=== PATIENT | male | born 1960 | race Caucasian/White ===

== ENCOUNTER 2023-11-29 11:36 | Inpatient (IN) | payer OTHER, SELFPAY ==
[2023-11-29] VITALS (23 sets, daily range): BP systolic 84–107; BP diastolic 55–77; PULSE 52–64; BMI 36.7
[2023-11-29] MEDS: NSS 1000 IV (07:28)
--- NOTE | 2023-11-29 07:32 | ED.GENMED ---
History of Present Illness
General
Chief Complaint: Fall
Time Seen by Provider: 11/29/23 07:28
History of Present Illness
History of Present Illness:
63-year-old male with history of diabetes, hyperlipidemia, hypertension, CHF with pacemaker presenting to the emergency department for fall and syncopal episode. Patient was at [facility] prior to arrival, had fallen in the aisle. Patient is unsure
why he fell. Denied any prodromal chest pain occultly breathing. Believes that he did lose consciousness. He presently denies any pain anywhere. He denies chest pain, difficulty breathing, abdominal pain. Denies any recent fever or illness.
Denies any present dizziness. Denies weakness or numbness or tingling to his extremities. Denies additional acute medical complaints.
Past History
Past History
ED Past Medical History: Other (Trach)
ED Past Surgical History: Cardiac (Pacemaker)
Social History
Tobacco: Other
Alcohol: Other
Drug: Other
Personal: Other
Employment: Other
Family History
Family History: Unable to obtain
Phy Exam
Physical Exam
Physical Exam:
General: Well-appearing, no clinical signs of dehydration, nontoxic and in no acute distress
HEENT: protecting airway. Extraocular movements intact. Abrasion to the nose. No septal hematoma
Neck: appears supple
CV: Normal heart rate, regular rhythm, no evidence of cyanosis
Resp: No accessory muscle use, no increased work of breathing, lungs clear to auscultation bilaterally
Abd: Soft and non-distended, no tenderness to palpation, normal bowel sounds
Extremities: No deformities, no swelling, no erythema
Neuro: alert, no focal neurologic deficit
: deferred
Rectal: deferred
Psych: Normal affect
Skin: Intact
Course
Orders/Labs/Results
Orders:
Orders
11/29/23 07:27
Electrocardiogram (*1) Urgent
Reason for Study: Chest Pain
EKG- Treatment ONCE
11/29/23 07:28
0.9% Sodium Chloride 1000 ml [Nss] 1,000 ml IV BOLUS
11/29/23 07:29
CT Head W/o Iv Contrast Urgent
Comment:
Reason For Exam: fall
EKG- Treatment ONCE
11/29/23 07:46
COVID-19 Antigen Urgent
Source: Nasal Swab
Complete Blood Count/With Diff Urgent
PTT Urgent
Prothrombin Time Urgent
11/29/23 07:47
Urinalysis Urgent
Date Specimen was Collected: 11/29/23
Time Specimen was Collected: 07:41
Urine Drug Abuse Screen Urgent
Date Specimen was Collected: 11/29/23
Time Specimen was Collected: 07:41
11/29/23 07:51
Add On- LAB Urgent
Tests Added?: Pro-BNP
11/29/23 07:54
Add On- LAB Urgent
Tests Added?: Alcohol
Add On- LAB Urgent
Tests Added?: Urine Drug Screen
11/29/23 08:21
Alcohol Urgent
Basic Metabolic Panel Urgent
NT-proBNP Urgent
Troponin I Urgent
Abnormal Lab Results
11/29/23 11/29/23 11/29/23
07:46 07:47 08:21
RBC 6.88 H 10^6/uL
(4.70-6.10)
MCV 72.2 L fL
(80.0-94.0)
MCH 23.5 L pg
(27.0-31.0)
MCHC 32.6 L g/dL
(33.0-37.0)
RDW 20.4 H %
(11.5-14.5)
Absolute Monos (auto) 0.8 H 10^3/uL
(0.1-0.6)
Monocytes % 10.9 H %
(1.7-9.3)
PT 14.7 H Sec
(11.4-14.6)
BUN 42 H mg/dl
(9-20)
Creatinine 1.5 H mg/dL
(0.7-1.3)
Glucose 202 H mg/dl
(70-99)
Urine Glucose 3+ A
(Negative)
11/29/23 07:46
11/29/23 08:21
Vital Signs
Initial and Last Documented VS:
Initial Vital Signs
Temp Pulse Resp BP Pulse Ox
97.7 F 64 20 99/61 95
11/29/23 07:21 11/29/23 07:21 11/29/23 07:21 11/29/23 07:21 11/29/23 07:21
Last Documented Vital Signs
Temp Pulse Resp BP Pulse Ox
97.7 F 54 16 90/62 95
11/29/23 07:21 11/29/23 09:25 11/29/23 09:25 11/29/23 09:25 11/29/23 09:25
MDM/Problems Addressed
MDM/Problems Addressed:
63-year-old male with history of hypertension, hyperlipidemia, diabetes, CHF with pacemaker presenting for syncopal episode. Vital signs on arrival are normal.
On exam patient is well-appearing, no acute distress or discomfort. Patient currently denying any acute symptoms. He is unclear why he passed out, had no prodromal symptoms. EKG obtained, ventricular paced, without change from prior. No focal
neurologic deficits, lower suspicion for central neurologic process. Patient afebrile, nontoxic, without concern for infectious pathology. [id number] glucose slightly elevated, without concern for hypoglycemic event. Patient does have
significant comorbidities, so will screen further with lab analysis. Given evidence of facial trauma, will screen with CT brain. Patient with pacemaker, will interrogate. Orthostatics obtained, unremarkable.
09:35 -patient's labs relatively unremarkable, mild hyperglycemia. CT brain without acute intracranial abnormality. Patient did have his device interrogated, patient has not CT, and appears to have sustained 2 shocks for ventricular tachycardia, 1
at 6:33 AM and another at 6:38 AM, which would coincide with timing of patient's falls prior to arrival. Patient allegedly fell in the aisle at [facility], and again in the bathroom. Did discuss with cardiology, will come evaluate, with likely plan
for admission/possible catheterization.
*EKG
Interpreted by ED Provider?: Yes
EKG Intrepretation Date: 11/29/23
EKG Intrepretation Time: 07:38
Interpretation: normal
Comparison EKG: no changes
Heart Rate: 75
Rate: normal
Rhythm: ventricular paced
[place]: normal axis
Interval: normal interval
Ischemia: no ischemia
*Critical Care Note
Total Time (30-74mins, 75-104mins- exclusive of procedures): Not Applicable
ED Attending Note
-
Portions of this chart may have been created with voice recognition software.� Occasional wrong word or��sound alike� substitutions may have occurred due to the inherent limitations of voice recognition software.
Discharge Plan
Departure
Prescriptions:
No Action
levothyroxine 100 MCG tablet
100 mcg PO DAILY
aspirin 81 MG tablet,delayed release (DR/EC)
81 mg PO DAILY
atorvastatin 40 mg tablet
40 mg PO DAILY
carvedilol 6.25 mg tablet
6.25 mg PO BID
torsemide 20 mg tablet
20 mg PO DAILY
amiodarone 200 mg tablet
200 mg PO DAILY
isosorbide mononitrate 30 mg tablet extended release 24 hr
30 mg PO DAILY
glimepiride 2 mg tablet
2 mg PO DAILY
potassium chloride 10 mEq tablet,ER particles/crystals
10 meq PO BID
omega-3 acid ethyl esters 1 gram capsule
1 g PO DAILY
Jardiance 10 mg tablet
10 mg PO DAILY
Entresto 49-51 mg tablet
1 tab PO Q12H
coenzyme Q10 [Co Q-10] 100 mg Capsule
100 mg PO DAILY
Referrals:
Stone Stevens MD [Family Provider] -
Interventions
Interventions:
*Risk Screen - Suicide Last Done: 11/29/23 07:21
*General Assessment Last Done: 11/29/23 07:21
*Neglect/Abuse Screening Last Done: 11/29/23 07:21
ED- Fall Risk Assessment Last Done: 11/29/23 07:21
*ED COVID-19 Vaccine History Last Done: 11/29/23 07:21
ED-Musculoskeletal Assessment Last Done: 11/29/23 07:21
ED- Neurological Assessment Last Done: 11/29/23 07:21
ED-Skin Assessment Last Done: 11/29/23 07:21
Discharge Date and Time
Print Language: UPPER SORBIAN
[2023-11-29 08:04] LABS: Urine Albumin Trace (Neg - Trace); Urine Bilirubin Negative (Negative); Urine Character Clear (Clear); Urine Color Yellow; Urine Glucose 3+ (Negative); Urine Ketone Negative (Negative); Urine Leukocyte Negative (Negative); Urine Nitrite Negative (Negative); Urine Occult Blood Negative (Negative); Urine Urobilinogen Negative (Neg - 1+); Urine pH 6.5 (5.0-9.0)
[2023-11-29 08:09] LABS: % Eosinophils 1.2 % (0-6); % Immature Granulocytes 0.4 % (0-0.5); % Lymphocytes 22.1 % (20.5-51.1); % Monocytes 10.9 % (1.7-9.3); % Neutrophils 64.4 % (42.2-75.2); Absolute Basophils 0.1 10^3/uL (0-0.2); Absolute Eosinophils 0.1 10^3/uL (0-0.7); Absolute Lymphocytes 1.5 10^3/uL (1.2-3.4); Absolute Monocytes 0.8 10^3/uL (0.1-0.6); Absolute Neutrophils 4.4 10^3/uL (1.4-6.5); Hematocrit 49.7 % (39.0-52.0); Hemoglobin 16.2 g/dL (13.0-18.0); Mean Corp Hgb Conc. 32.6 g/dL (33.0-37.0); Mean Corpuscular Hgb 23.5 pg (27.0-31.0); Mean Corpuscular Volume 72.2 fL (80.0-94.0); Mean Platelet Volume 10.2 fL (7.4-10.4); Nucleated Red Blood Cells % 0 % (-); Platelet Count 177 10^3/uL (130-400); Red Blood Cell Count 6.88 10^6/uL (4.70-6.10); Red Cell Dist. Width 20.4 % (11.5-14.5); White Blood Cell Count 6.9 10^3/uL (4.8-10.8)
[2023-11-29 08:11] LABS: INR 1.14; PT 14.7 Sec (11.4-14.6)
[2023-11-29 08:12] LABS: APTT 28.9 Sec (23.4-35.0)
[2023-11-29 08:17] LABS: COVID-19 Antigen Negative (Negative)
[2023-11-29 08:54] LABS: Amphetamines Negative (Negative); Barbiturates Negative (Negative); Benzodiazepines Negative (Negative); Buprenorphine Negative (Negative); Cocaine Negative (Negative); Marijuana Negative (Negative); Methadone Negative (Negative); Methamphetamines Negative (Negative); Opiates Negative (Negative); Phencyclidine Negative (Negative); Tricyclic Antidepressants Negative (Negative)
--- NOTE | 2023-11-29 08:57 | EDRN ---
the pt is resting in stretcher in the lowest position, side rails up x2, call melendez within reach, HOB elevated, no s/s of distress, the pt does have MATHIS, no c/o chest pain at this moment, the pt states that it is intermittent, the pt ambulates to the
bathroom independently with no issues, antibiotic ointment was placed on the abrasion on the pts bridge of nose and covered with a band aid, [employer] pacemaker interrogated, provider notified, will continue to monitor the pt closely
--- NOTE | 2023-11-29 08:59 | EDRN ---
labs were sent twice by this RN and were hemolyzed twice per the lab, this RN notified Dr. White
[2023-11-29 09:00] LABS: Alcohol None Detected; Blood Urea Nitrogen 42 mg/dl (9-20); Calcium 8.8 mg/dl (8.4-10.2); Carbon Dioxide 22 mmol/L (22-30); Chloride 103 mmol/L (98-107); Estimated Creatinine Clearance 59 ml/min; Glucose 202 mg/dl (70-99); Sodium 141 mmol/L (135-145); eGFR 51.99
[2023-11-29 09:12] LABS: Troponin I 0.029 ng/ml
--- NOTE | 2023-11-29 09:16 | EDRN ---
Troponin came back elevated, Dr. White made aware
[2023-11-29 09:55] LABS: NT-proBNP 869 pg/ml
--- NOTE | 2023-11-29 09:59 | EDRN ---
Magnesium and Potassium need to be drawn due to lab stating that they were hemolyzed, this RN notified Dr. White, this RN will draw and sen labs
--- NOTE | 2023-11-29 10:17 | EDRN ---
Cardiology currently at the pts bedside
--- NOTE | 2023-11-29 10:20 | CON.CAR ---
Addendum entered and electronically signed by Shaina Chen MD 11/29/23 12:02:
I saw and examined the patient.
The HOME SCHOOL TEACHER's note was reviewed and I agree with the note.
Comment: Pleasant 63-year-old gentleman with a past medical history of ischemic cardiomyopathy with an EF of 5 to 10%, [employer] BiV ICD however LV lead is deactivated and is known to be dislodged, prior anterior wall GA with PCI? (VT patient
reports approximate 5 to 6 years ago on amiodarone 200 mg a day, CKD, diabetes, hypothyroidism and sleep apnea presents after 2 syncopal episodes that occurred today while doing his morning walk [facility] [employer]. He does not recall the events. [place]
Confide ICD interrogation shows 2 episodes of VT that failed ATP pacing and resulted in appropriate shocks. Currently he is feeling well. He states he has been feeling well in the last weeks. No chest pain or shortness of breath. He climbs a
flight of stairs without having to stop. Typical dance costume designer is Dr. Pierre Andre. On exam he appears to be in no distress a regular rate and rhythm with a normal S1-S2 no murmur rubs gallops were appreciated lungs were clear to auscultation
bilaterally abdomen is obese but soft, extremities were warm well-perfused including cyanosis or edema. EKG is atrial sensed V paced.
Syncope due to VT with appropriate ICD shocks x 2. Will proceed to cardiac catheterization and start IV amiodarone. Will ask EP to review his case. Initial Trope 0.02 9, will need to trend given ICD shock on clear what the significance of this
level with a single check. He has no chest pain. He does have a history of prior PCI and ischemic cardiomyopathy. Will continue aspirin. Heart failure seems to be compensated will continue typical heart failure medications. Will update his
echocardiogram although already has severely reduced reported EF at 5 to 10%.
Original Note:
Consultation
Consultation Request
Date/Time Consultation Requested: 11/29/23935
Date/Time Consultation Performed: 11/29/2366
Requesting Provider: Dr. White
Performing Provider: Fatimah GONZAELZ for Dr. Chen
Reason for Consultation: VT with shocks
Medical History
-
Chief Complaint: falls
History of Present Illness:
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
Today, he was walking in [employer] and fell and got up, then had another fall. It sounds like he had syncope, though he does not recall much of it. Device check reveals VT with two shocks this AM corresponding to the time he had his episodes. He hit
his face and had nose bleeding. Head CT negative. He has chest discomfort that is worse to palpation. He is in no distress at the time of my assessment and denies any SOB.
Past Medical History
Past Medical History: Arrhythmias, CAD, CHF, Hypothyroidism, NIDDM and Other (sleep)
Social History
Tobacco: Former Smoker
Family History
Family History: Reviewed & Not Pertinent
Allergies / Home Medications
Allergy/AdvReac Type Severity Reaction Status Date / Time
No Known Allergies Allergy Verified 03/09/22 12:35
�Medication �Instructions �Recorded �Confirmed �Type
aspirin 81 mg tablet,delayed 81 mg PO DAILY Blood clot 09/03/18 11/29/23 History
release prevention/tx
levothyroxine 100 mcg tablet 100 mcg PO DAILY Thyroid 09/03/18 11/29/23 History
amiodarone 200 mg tablet 200 mg PO DAILY Arrhythmia 03/09/22 11/29/23 History
atorvastatin 40 mg tablet 40 mg PO DAILY High cholesterol 03/09/22 11/29/23 History
carvedilol 6.25 mg tablet 6.25 mg PO BID Blood pressure 03/09/22 11/29/23 History
coenzyme Q10 100 mg capsule (Co 100 mg PO DAILY Supplement 03/09/22 11/29/23 History
Q-10)
empagliflozin 10 mg tablet 10 mg PO DAILY Diabetes 03/09/22 11/29/23 History
(Jardiance)
glimepiride 2 mg tablet 2 mg PO DAILY Diabetes 03/09/22 11/29/23 History
isosorbide mononitrate 30 mg 30 mg PO DAILY Heart 03/09/22 11/29/23 History
tablet,extended release 24 hr disease/condition
omega-3 acid ethyl esters 1 gram 1 g PO DAILY Supplement 03/09/22 11/29/23 History
capsule
potassium chloride 10 mEq 10 meq PO BID Electrolyte Repletion 03/09/22 11/29/23 History
tablet,extended release(part/cryst)
sacubitril 49 mg-valsartan 51 mg 1 tab PO Q12H Heart Failure 03/09/22 11/29/23 History
tablet (Entresto)
torsemide 20 mg tablet 20 mg PO DAILY Fluid 03/09/22 11/29/23 History
retention/Swelling
Review of Systems
-
History Source: Patient
All other systems: Negative unless noted
Cardiac: Syncope
Physical Exam
Vital Signs
Temp Pulse Resp BP Pulse Ox
97.7 F 54 16 90/62 95
11/29/23 07:21 11/29/23 09:25 11/29/23 09:25 11/29/23 09:25 11/29/23 09:25
Lab Results
11/29/23 07:46
Troponin I 0.029 ng/ml 11/29/23 08:21
Qcr-U-Ntmmjodeczv Pept 869 pg/ml 11/29/23 08:21
Physical Exam
General: Well Developed, Well Nourished and No Apparent Distress
HEENT: Normocephalic and Anicteric
Respiratory: Clear and Non Labored Respirations
Cardiac: Regular Rhythm
Musculoskeletal: No Edema
Skin: Warm and Dry
Neuro: AO x 3
Psych: Calm
Impression / Plan
-
Syncope related to ventricular tachycardia s/p ICD shocks:
-this diagnosis is threat to life
-start IV amiodarone, which requires intensive monitoring. Echo today. EP to evaluate.
-cardiac cath today
-K and mag pending
CAD with hx GA:
-details unknown, but patient thinks he had a PCI in the past
-he takes daily baby aspirin every night. Continue statin, coreg, imdur.
VT:
-ICD in place
-reloading with IV amiodarone
-continue coreg
CKD:
-seems stable
-monitor
ICM:
-EF 5-10% on last echo as below
-update here
-on coreg, Entresto, Jardiance
HFrEF: chronic
-does not appear volume overloaded to assessment
-continue diuretic and monitor
DM:
-on medical therapy
Data Reviewed
-
EKG: Tracing Personally Visualized and interpreted (baseline artifact, V paced rhythm, underlying SR)
CT Scan: Report Reviewed by me (No evidence of acute intracranial abnormality.)
Medical Tests (Nuc Med, Echo etc): Report Reviewed by me (echo 02/19/2023: EF 5-10%, severe eccentric LVH, grade III DD, moderate MR, PAP 42 mmHG)
Labs: Labs Reviewed by me
--- NOTE | 2023-11-29 10:51 | EDRN ---
Cardiology currently at the pts bedside
--- NOTE | 2023-11-29 11:01 | EDRN ---
hospitalist currently at the pts bedside
--- NOTE | 2023-11-29 11:14 | HPS.HSE ---
Family Physician
-
Family Physician: Stone Stevens
Chief Complaint
-
Syncope
History of Present Illness
63-year-old male with past medical history of CAD status post PCI, ischemic cardiomyopathy with a EF 5 to 10%, [employer] BiV ICD, CKD, diabetes, hypothyroidism, sleep apnea came to the hospital after 2 syncopal episodes when he was having
his morning walk. Patient denies any nausea, vomiting, diarrhea, constipation. Denies any shortness of breath. Does feel discomfort around his chest. His outpatient solderer furnace is Dr. Andre from [facility]. Upon ICD interrogation it was
determined that patient had 2 shocks provided today around the timing of his syncopal episode. He has been seen by cardiology in the ER and will be taken for cardiac catheterization.
Medical History
Past Medical History
Past Medical History: Reports Arrhythmia, CAD, CHF, Hypothyroidism, NIDDM and Other (Sleep apnea)
Past Surgical History: Reports Cardiac
Social History
Tobacco: Former Smoker
Alcohol: None
Family History
Family History: Not pertinent
Allergies / Home Medications
Allergies reflects when Allergies were last updated in [employer].
Home Medications with original date entered in [employer]
Allergy/Medication List:
Allergies
Allergy/AdvReac Type Severity Reaction Status Date / Time
No Known Allergies Allergy Verified 03/09/22 12:35
Home Medications
levothyroxine 100 mcg tablet 100 mcg PO DAILY Thyroid 09/03/18
amiodarone 200 mg tablet 200 mg PO DAILY Arrhythmia 03/09/22
atorvastatin 40 mg tablet 40 mg PO DAILY High cholesterol 03/09/22
carvedilol 6.25 mg tablet 6.25 mg PO BID Blood pressure 03/09/22
coenzyme Q10 100 mg capsule (Co Q-10) 100 mg PO DAILY Supplement 03/09/22
empagliflozin 10 mg tablet (Jardiance) 10 mg PO DAILY Diabetes 03/09/22
glimepiride 2 mg tablet 2 mg PO DAILY Diabetes 03/09/22
isosorbide mononitrate 30 mg tablet,extended release 24 hr 30 mg PO DAILY Heart disease/condition 03/09/22
omega-3 acid ethyl esters 1 gram capsule 1 g PO DAILY Supplement 03/09/22
potassium chloride 10 mEq tablet,extended release(part/cryst) 10 meq PO BID Electrolyte Repletion 03/09/22
sacubitril 49 mg-valsartan 51 mg tablet (Entresto) 1 tab PO Q12H Heart Failure 03/09/22
torsemide 20 mg tablet 20 mg PO DAILY Fluid retention/Swelling 03/09/22
aspirin 81 mg tablet,delayed release 81 mg PO QPM 11/29/23
Review of Systems
-
History Source: Patient
A 12 point ROS was completed and negative except as noted: Yes
Cardiac: Reports Syncope
Physical Exam
Vital Signs
Vital Signs
Temp Pulse Resp BP Pulse Ox
97.7 F 55 16 92/72 95
11/29/23 07:21 11/29/23 11:01 11/29/23 09:25 11/29/23 11:01 11/29/23 11:01
Physical Exam
General: Well Nourished and No Apparent Distress
HEENT: Anicteric and Moist mucous membranes
Respiratory: Clear and Non Labored Respirations; No Wheezes
Cardiac: S1/S2 and Regular Rhythm
Breast: Deferred by me
GI: Soft, Non Tender, Non Distended and Normal Bowel Sounds
Rectal: Deferred by Provider
Genito-urinary: No [place]
Musculoskeletal: No Edema
Neuro: Awake, Alert, Oriented and AO x 3
Psych: Calm and Intact Judgment/Insight
Laboratory Results
-
11/29/23 07:46
Laboratory Results
PT 14.7 Sec (11.4-14.6) H 11/29/23 07:46
INR 1.14 11/29/23 07:46
APTT 28.9 Sec (23.4-35.0) 11/29/23 07:46
Total Bilirubin Cancelled 11/29/23 08:21
AST Cancelled 11/29/23 08:21
ALT Cancelled 11/29/23 08:21
Alkaline Phosphatase Cancelled 11/29/23 08:21
Troponin I 0.029 ng/ml 11/29/23 08:21
Data Reviewed
-
Lab Data: Labs Reviewed by me and Discussed with Patient
Impression/Plan
-
Syncope secondary to ventricular tachycardia status post ICD shocks
Continue with amiodarone drip
Echo
EP to evaluate
Cardiac cath today; NPO
Monitor potassium and magnesium
History of ventricular tachycardia
Has BiV ICD
Follows up with Dr. Andre outpatient
CKD 3a
monitor creatinine
HLD
Ischemic cardiomyopathy
Reported EF 5 to 10%, echo pending
Continue Coreg, Jardiance, Imdur
Entresto if blood pressure tolerates
CHF with reduced EF, chronic
Does not appear to be volume overloaded
Continue to monitor
Continue torsemide
Diabetes mellitus
Hold glimepiride
Low-dose sliding scale, Accu-Cheks
Hypothyroidism-continue Synthroid
Obesity due to excess calories
DVT prophylaxis
Heparin
Full code
I spent a total of 77 minutes with the patient or on the floor. More than 50% of this time involved counseling and coordination of care.
--- NOTE | 2023-11-29 11:20 | EDRN ---
labs drawn and sent, second PIV placed
[2023-11-29] MEDS: CORDARONE 103 MG IV (11:29)
--- NOTE | 2023-11-29 11:41 | EDRN ---
the lab called and stated that the pts labs hemolyzed again, this RN notified Dr. White
[2023-11-29] MEDS: CORDARONE 518 MG IV (11:42)
--- NOTE | 2023-11-29 11:47 | EDRN ---
Amiodarone gtt started at 1mg/min or 33.3cc/hour, the pts HR is in the 50's, this RN notified Fatimah Schneider PASS WORKER, per the provider it is okay to run the pts Amiodarone gtt, the pt is resting in stretcher in the lowest position, side rails up x2, call
melendez within reach, HOB elevated, no s/s of distress, no c/o chest pain, no c/o SOB, per the provider the pt is to be NPO and the pt was notified, will continue to monitor the pt closely
--- NOTE | 2023-11-29 12:15 | EDRN ---
the lab called and stated that the pts K and Mag have hemolyzed, this RN notified the provider
--- NOTE | 2023-11-29 12:26 | EDRN ---
labs were drawn and sent
--- NOTE | 2023-11-29 12:41 | EDRN ---
verbal report given to Katherine BARNES in the dye lab technician
--- NOTE | 2023-11-29 12:47 | EDRN ---
this RN tubed paper report to the receiving unit
[2023-11-29 12:48] LABS: Magnesium 2.3 mg/dl (1.6-2.3); Potassium 4.6 mmol/L (3.5-5.1)
--- NOTE | 2023-11-29 12:51 | EDRN ---
this RN entered the pts room to notify him that he was going to be taken to the construction or leak gang laborer, the pt stated, 'I need to use the bathroom first i cannot hold it please let me up', the pt was able to ambulate to the bathroom with cardiac catheterization technician on and
amiodarone gtt running, the pt is sitting on the toilet attempting to have a bowel movement, will continue to monitor the pt closely
--- NOTE | 2023-11-29 12:53 | EDRN ---
K and Mag results came back and this RN notified the provider
[2023-11-29 13:30] LABS: TSH Reflex To Free T4 0.14 uIU/ml (0.47-4.68)
--- NOTE | 2023-11-29 13:54 | W.PN.UPDATE ---
Update Note
Progress Note Update
63-year-old send sinus, cardiomyopathy, LVEF 10% presented with multiple VT episodes terminated with ICD shock. Had 3 shocks for appropriate. S/p left heart cath showing diffuse mild disease on the left system with occluded RCA filling from left
to right collaterals.
Patient's device is [employer] implanted on 01/26/2015
Device is Dynagen X4 DISPUTE RESOLUTION ANALYST [id number]
Atrial lead as intrinsic amplitude 4.2 mV with an impedance of 482 ohms. Threshold 1.0 V at 0.8 ms
RV ICD lead is 100% paced with impedance of 548 ohms. Last threshold was 0.6V@ 0.5 ms. Shock impedance 53 ohms stable
LV lead has previously been dislodged and is turned off with pacing impedance of more than 3000 ohms.
Patient's VT is appropriately treated with ICD shocks.
We will load patient with amiodarone IV drip and increase home dose of amiodarone to 400 twice daily for a week followed by 200 twice daily at a maintenance dose.
Will continue carvedilol 6.25 mg twice a day.
For heart failure, he is on Entresto, Imdur, carvedilol, Jardiance, Lipitor, aspirin, torsemide. Potentially can add spironolactone or eplerenone.
Currently patient is EKG shows a sensed V paced rhythm with left bundle branch base morphology from the RV ICD lead. Patient's LV CS lead has been dislodged/dysfunctional. Patient is a nonresponder to DISPUTE RESOLUTION ANALYST and LVEF is 10 to 15%. With CS lead still
in place, and nonfunctional with QRS is more than 200 ms wide, he would be a good candidate for DISPUTE RESOLUTION ANALYST upgrade.
We can potentially place a left bundle branch/conduction system pacing lead. And extraction of nonfunctional LV lead is also possibility. However, given his morbidities, we can abandon the CS lead and place a conduction system pacing lead if
venogram shows patent axillary/subclavian venous system.
--- NOTE | 2023-11-29 14:50 | ITS.CL.CATH ---
Sales Exec - Catheterization
Cardiac Catheterization
Procedure Report:
CARDIAC CATHETERIZATION REPORT
Date of Procedure: 11/29/23
Referring: Dr. Shaina Chen
Indication: VT, ICD shock
PROCEDURE:
1. Left heart catheterization
2. Coronary angiography
ACCESS:
6 [place] right radial artery
CATHETERS:
1. 6 [place] JL3.5
2. 6 [place] JR4
HEMODYNAMIC DATA (mmHg)
LV 100/19 (EDP 32)
AO 93/63 (mean 76)
CORONARY ANGIOGRAPHY
Dominance: right
LM: normal
LAD: appears to be flush occluded just after the takeoff of a moderate caliber D1. There are L-L collaterals to small branch vessels on the anterolateral wall.
RAMUS: large vessel without significant disease.
LCx: moderate caliber vessel giving rise to several LPL branches. There is a 50% stenosis at the ostial LCx.
RCA: fills via left to right collaterals. The RCA could not be selectively engaged and did not fill on non-selective injection of the right cusp, suggesting it to be flush occluded.
Closure Device: TD band
Radiation dose (mGy): 527.48
DAP (cm2.Gy): 33.3627
Fluoroscopy time (minutes): 5.2
CONCLUSIONS:
1. Two-vessel coronary artery disease with LAD EARLY CHILDHOOD EDUCATION SPECIALIST and RCA EARLY CHILDHOOD EDUCATION SPECIALIST with L-R collaterals. No culprit occlusion to explain the patient's VT.
2. Severely elevated LV filling pressure and no aortic stenosis.
RECOMMENDATIONS:
1. Expectant management after cardiac catheterization via right approach.
2. Aggressive diuresis and GDMT for heart failure.
3. EP consultation to address malfunctioning LV pacing lead.
Copy to: Dr. Pierre Andre (primary senior administrative services officer)
Signed: Aftab Pitt MD, PhD
[2023-11-29 16:07] LABS: Free T4 2.22 ng/dl (0.78-2.19)
--- NOTE | 2023-11-29 16:35 | CM ---
CM following for DC planning needs.
Met w/ patient at bedside to complete initial assessment.
Pt. informs that he resides w/ his sister in a private, 1 level apartment.
He is functionally indep. at baseline; works for [employer].
Pt. has Rx plan and uses [facility] for prescription needs.
Pt. does have CPAP @ home. He is seeking support in obtaining a CPAP for long travel to [place]. I advised him to follow up with his prescribing Preschool Disability Teacher. He showed me lesley, which indicates he is due for an appointment as of September,-
encouraged patient to call them for appointment.
Anticipated DC plan is for home, no needs.
CM will follow.
--- NOTE | 2023-11-29 17:08 | CARDSERVLU ---
Echocardiogram with Lumason completed after protocol screening completed. Allergies verified.
Patent IV site: LW_
IV site flushed with 0.9% NaCl pre and post administration.
Diluted bolus method utilized to enhance visualization of ventricular rooney.
Total volume given: ___2.5_ mL
Patient tolerated all procedures well without complications.
[2023-11-29 17:23] LABS: Glucose - Point of Care 121 mg/dl (70-99)
[2023-11-29 17:52] LABS: Troponin I 0.028 ng/ml
--- NOTE | 2023-11-29 18:00 | PTCARENOTE ---
Pt received post cath at 1430. Right rad band intact with no hematoma or bleeding. Pt c/o of mild chest discomfort. Dr. Pitt aware. O2 on at 2LNC. Pt stated he felt better after wearing the O2. Assisted oob to the bathroom, gait steady. IV amio
infusing as ordered.
[2023-11-29] MEDS: ASPIR LOW (ENTERIC COATED) 81 MG PO (19:12)
[2023-11-29] MEDS: KCL 10 MEQ PO (19:26)
[2023-11-29] MEDS: HEPARIN 5000 UNITS SC (19:27)
[2023-11-29] MEDS: COREG 6.25 MG PO (19:27)
[2023-11-29 21:26] LABS: Glucose - Point of Care 107 mg/dl (70-99)
--- NOTE | 2023-11-29 23:16 | PTCARENOTE ---
Pt rec'd PROGRAM DIRECTOR/TRAFFIC DIRECTOR on telemetry on IV Amio gtt. IV site patent. CPAP order obtained from House Seafood Process Worker ,pt tolerating at this time.
[2023-11-30] VITALS (10 sets, daily range): BP systolic 92–111; BP diastolic 49–76; PULSE 56–60; BMI 35.4
[2023-11-30 04:49] LABS: % Basophils 0.7 % (0-2); % Eosinophils 1.3 % (0-6); % Immature Granulocytes 0.3 % (0-0.5); % Lymphocytes 15.5 % (20.5-51.1); % Monocytes 11.7 % (1.7-9.3); % Neutrophils 70.5 % (42.2-75.2); Absolute Basophils 0.1 10^3/uL (0-0.2); Absolute Eosinophils 0.1 10^3/uL (0-0.7); Absolute Monocytes 0.8 10^3/uL (0.1-0.6); Absolute Neutrophils 4.7 10^3/uL (1.4-6.5); Hematocrit 48.6 % (39.0-52.0); Hemoglobin 15.9 g/dL (13.0-18.0); Mean Corp Hgb Conc. 32.7 g/dL (33.0-37.0); Mean Corpuscular Hgb 24.3 pg (27.0-31.0); Mean Corpuscular Volume 74.2 fL (80.0-94.0); Mean Platelet Volume 10.2 fL (7.4-10.4); Nucleated Red Blood Cells % 0 % (-); Platelet Count 170 10^3/uL (130-400); Red Blood Cell Count 6.55 10^6/uL (4.70-6.10); Red Cell Dist. Width 19.9 % (11.5-14.5); White Blood Cell Count 6.7 10^3/uL (4.8-10.8)
--- NOTE | 2023-11-30 05:09 | PTCARENOTE ---
Pt with c/o discomfort at RAC iv site, iv removed ice applied
new 20g placed on left forearm.
[2023-11-30 05:20] LABS: Troponin I 0.022 ng/ml
[2023-11-30 06:18] LABS: Blood Urea Nitrogen 32 mg/dl (9-20); Calcium 8.7 mg/dl (8.4-10.2); Carbon Dioxide 19 mmol/L (22-30); Chloride 106 mmol/L (98-107); Estimated Creatinine Clearance 63 ml/min; Glucose 134 mg/dl (70-99); Magnesium 2.3 mg/dl (1.6-2.3); Potassium 4.5 mmol/L (3.5-5.1); Sodium 142 mmol/L (135-145); eGFR 56.48
[2023-11-30] MEDS: SYNTHROID 100 MCG PO (07:40)
[2023-11-30 08:37] LABS: Glucose - Point of Care 120 mg/dl (70-99)
[2023-11-30] MEDS: PACERONE 400 MG PO ×2 (08:52→20:57)
[2023-11-30] MEDS: FARXIGA 10 MG PO (08:52)
[2023-11-30] MEDS: KCL 10 MEQ PO ×2 (08:52→20:56)
[2023-11-30] MEDS: IMDUR (EXTENDED RELEASE) 30 MG PO (08:52)
[2023-11-30] MEDS: COREG 6.25 MG PO ×2 (08:53→20:59)
[2023-11-30] MEDS: LIPITOR 40 MG PO (08:53)
[2023-11-30] MEDS: HEPARIN SC (09:03)
--- NOTE | 2023-11-30 09:11 | W.PN.CD ---
Today's Communication / Plan
-
give lasix now
hold entresto and jardiance for now
upgrade BIV ortega sci device, NPO
transistion iv amio to po
Impression / Plan
-
Syncope related to ventricular tachycardia s/p ICD shocks:
-this diagnosis is threat to life
-EP evaluation are reviewed and appreciated, transition amiodarone to 400 mg p.o. twice daily for a week then 200 mg twice daily daily
-Cath without new etiology of VT likely due to severe cardiomyopathy
-Discussed with outpatient roustabout Dr. Sanon who knows the patient well. All agree that he may benefit from an upgraded device. Would abandon the LV lead and try to place another lead versus a bundle manager branch.
-Discussed with Dr. Cain today who has the ability to upgrade device today. Will move forward with this.
-has some reproducible chest tenderness likely due to shock.
VT:
-ICD in place
-Status post IV amnio load transitioning to p.o. as above
-continue coreg
CAD with hx [place]:
-Cath below
-No angina, continue OMT
HFrEF: chronic
-today sob with lying flat
-will give IV lasix now requires intesive monitoring of labb so there is
ICM:
-EF10-15% on echo, likely unchanged
-on coreg, Entresto, Jardiance, torsemide, bp doesn't allow for MRA right now
-holding Jardiance and Entresto for procedure today
CKD:
-seems stable
-monitor
DM:
-as per medicine
Subjective:
He has some cp pain in the mid chest
He denies dyspnea or orthopnea
Data:
Cath 11/30/23
HEMODYNAMIC DATA (mmHg)
LV 100/19 (EDP 32)
AO 93/63 (mean 76)
CORONARY ANGIOGRAPHY
Dominance: right
LM: normal
LAD: appears to be flush occluded just after the takeoff of a moderate caliber D1. There are L-L collaterals to small branch vessels on the anterolateral wall.
RAMUS: large vessel without significant disease.
LCx: moderate caliber vessel giving rise to several LPL branches. There is a 50% stenosis at the ostial LCx.
RCA: fills via left to right collaterals. The RCA could not be selectively engaged and did not fill on non-selective injection of the right cusp, suggesting it to be flush occluded.
CONCLUSIONS:
1. Two-vessel coronary artery disease with LAD NETWORK SECURITY ARCHITECT and RCA NETWORK SECURITY ARCHITECT with L-R collaterals. No culprit occlusion to explain the patient's VT.
2. Severely elevated LV filling pressure and no aortic stenosis.
RECOMMENDATIONS:
1. Expectant management after cardiac catheterization via right approach.
2. Aggressive diuresis and GDMT for heart failure.
3. EP consultation to address malfunctioning LV pacing lead.
CCT 41 minutes
Physical Exam
Vital Signs/Labs
Vital Signs
Temp Pulse Resp BP Pulse Ox
97.9 F 69 20 104/69 97
11/30/23 07:20 11/30/23 07:00 11/30/23 07:20 11/30/23 03:58 11/30/23 07:20
11/29/23 11/30/23 12/01/23
06:59 06:59 06:59
Actual Weight 106.1 kg
11/30/23 04:33
11/30/23 05:40
PT 14.7 Sec (11.4-14.6) H 11/29/23 07:46
INR 1.14 11/29/23 07:46
APTT 28.9 Sec (23.4-35.0) 11/29/23 07:46
Magnesium 2.3 mg/dl (1.6-2.3) 11/30/23 05:40
Free T4 2.22 ng/dl (0.78-2.19) H 11/29/23 08:21
11/29/23 11/29/23
07:46 08:21
Tfk-C-Bazamhnzbet Pept Cancelled 869
LAB Results
11/29/23 11/29/23 11/29/23
07:46 08:21 17:08
Troponin I Cancelled 0.029 0.028
11/29/23 11/30/23 11/30/23
20:10 00:30 04:33
Troponin I Cancelled Cancelled 0.022
Physical Exam
Constitutional: No acute distress
Cardiovascular: Rhythm & rate is regular, Systolic murmur absent, Diastolic murmur absent and Other (tenderness mid sternum with palptations)
Respiratory: Lungs clear to auscul., Wheeze Absent, Crackles Absent, Rhonchi Absent and Other (increased resp effort with lying)
Neuro/Psych: AO x 3
Data Reviewed
-
Date of Service: November 30, 2023
Medical Decision Making: Review of Case with other Provider (Dr Arambula and Dr Cain plan to upgrade device)
[2023-11-30] MEDS: LASIX 40 MG IV ×2 (09:26→17:55)
[2023-11-30] MEDS: FLUSH (NSS) 1 FLUSH IV ×2 (09:28→17:09)
[2023-11-30] MEDS: TYLENOL 650 MG PO (09:31)
[2023-11-30 09:40] LABS: Glycohemoglobin (HgbA1c) 7.3 % (4.0-5.6)
--- NOTE | 2023-11-30 13:33 | W.PN.HOSP.TC ---
Today's Communication/Plan
-
Monitor vital signs
see plan
OR today by EP to upgrade ICD device
Lasix given by cardiology
Assessment / Plan
Assessment / Plan
General: Well Nourished and No Apparent Distress
HEENT: Anicteric and Moist mucous membranes
Respiratory: Clear and Non Labored Respirations; No Wheezes
Cardiac: S1/S2 and Regular Rhythm
GI: Soft, Non Tender, Non Distended and Normal Bowel Sounds
Genito-urinary: No Lawrence
Musculoskeletal: No Edema
Neuro: Awake, Alert, Oriented and AO x 3
Psych: Calm and Intact Judgment/Insight
Syncope secondary to ventricular tachycardia status post ICD shocks
Was on amnio drip which will be transition to p.o. amiodarone per cardiology
Status post catheterization 11/28 without new etiology of ventricular tachycardia which likely is secondary to severe cardiomyopathy
EP is also involved in patient device will be upgraded 11/29.
Monitor potassium and magnesium
History of ventricular tachycardia
Has BiV ICD, will be upgraded 11/29. EP following
Follows up with Dr. Andre outpatient
CKD 3a
monitor creatinine
HLD
Ischemic cardiomyopathy
Echo with EF 10 to 15%, previously was 5 to 10%
Continue Coreg, Jardiance, Imdur
Entresto if blood pressure tolerates
CHF with reduced EF, chronic
Does not appear to be volume overloaded
Continue to monitor
Continue torsemide
Diabetes mellitus
Hold glimepiride
Low-dose sliding scale, Accu-Cheks
A1c 7.3
Hypothyroidism-continue Synthroid
Obesity due to excess calories
DVT prophylaxis
Heparin
Full code
Anticipated Discharge: > 48 hours
Subjective/Interval History
-
Date of Service: November 30, 2023
denies sob
Objective Data
-
Labs:
Laboratory Results
11/30/23 11/30/23
04:33 05:40
WBC 6.7
Hgb 15.9
Hct 48.6
Plt Count 170
Sodium Cancelled 142
Potassium Cancelled 4.5
Chloride Cancelled 106
Carbon Dioxide Cancelled 19 L
BUN Cancelled 32 H
Creatinine Cancelled 1.4 H
Glucose Cancelled 134 H
Calcium Cancelled 8.7
Vital Signs:
Vital Signs
Temp Pulse Resp BP Pulse Ox
97.9 F 66 20 101/60 96
11/30/23 07:20 11/30/23 09:30 11/30/23 07:20 11/30/23 07:23 11/30/23 07:23
--- NOTE | 2023-11-30 14:06 | PN.CDI ---
CDI
- -
CDI:
Physician Documentation Request
Admit Date: 11/29/23 11:36
Dear Doctor Gustavo,
Clinical Indicators:
Patient admitted with syncope, secondary to ventricular tachycardia
11/28 Business Consult Report, LVEDP 32 'Aggressive diuresis and GDMT for heart failure'
11/29 Cardiology PN, 'HFrEF: chronic-today sob with lying flat...'
11/29 Lasix 40 mg IV x 1.
Please clarify the most likely acuity of CHF you are evaluating, treating or monitoring.
Acute on chronic HFpEF
Chronic HFrEF only
Other,please specify
Use of terms such as suspected, likely, concern for, or probable (associated with a specific diagnosis that is being evaluated, monitored, or treated as if it exists) are acceptable and can be coded in the inpatient setting, when documented at the
time of discharge.
Thank you,
Maggie Mansfield RN BSN
CDI Specialist
available via tiger text
Please use your independent medical judgment in providing your response.
[2023-11-30 14:28] LABS: Glucose - Point of Care 134 mg/dl (70-99)
--- NOTE | 2023-11-30 14:28 | ITS.CL.ICD ---
Addendum entered and electronically signed by Amador Cani MD 11/30/23 15:31:
Correction:
Conclusion:
1. 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
2. Malfunction of LV lead placed in 2014 is confined to poles 1 and 2
3. ICD system was not changed. DFT testing was not performed. Filling pressures were not assessed.
4. Diaphragmatic stimulation threshold in current configuration is 3 V. LV output is programmed at 2 V.
Original Note:
Vice President Quality Assurance - ICD
Implantable Cardioverter Defibrillator
Procedure Report:
Date of Procedure: November 30, 2023.
Procedures: Left upper extremity venogram. ICD Pocket exploration. ICD reprogramming.
Indication: Rapid VT with appropriate shock. Heart failure. CS/LV lead malfunction
Performing physician: Amador Cain M.D., [facility].
Existing Hardware (no change in hardware made today)
Pulse Generator (implanted 01/26/2015): Yadio; Model# G156; Serial# [id number].
Atrial Lead: Guidant (implanted 04/18/2010): Model# [id number]; Serial# [id number].
Right Ventricular Lead: [employer] (implanted 04/18/2010); Model# [id number]; Serial# [id number].
Left Ventricular Lead: [employer] (implanted 01/26/2015); Model# [id number]; Serial# [id number].
Technique: A time out was performed. The procedure site was identified. The patient was anesthetized by the anesthesia service. The patient was prepped and draped in the usual fashion. A 10 mL venogram suggested a widely patent axillary and
subclavian vein. The cephalic vein was not seen but 2 leads seem to travel along the course of cephalic vein access. Cefazolin was administered prior to the skin incision. Local anesthetic was applied to the left prepectoral subcutaneous tissue.
The left axillary vein could not be accessed with a percutaneous approach because of the location of the pulse generator. A 3 inch incision was made over the pulse generator and the generator was removed from the pocket to allow venous access. The
axillary vein was accessed but the micro puncture wire and a glide wire would not advance. A review of the venogram showed that there is in fact about a 3-5 cm total occlusion of the axillary and subclavian vein. As the initial plan was for
referral for consideration of extraction and reimplantation (vs right sided implant with new system or single lead with tunnelling to the left) I chose not to perform pulse generator change. There is over 1 year until GERMAN. A Zwamytronic Tyrx
absorbable antibiotic envelop was used. The device and leads were placed back in the pocket. The incision was closed in three layers with absorbable suture. Steri strips and an silver impregnated dressing were applied. The estimated loss was less
than 5 ml. There were no complications. Defibrillation threshold testing was not performed. IV contrast total: 10ml. Fluoroscopy time 8.8 minutes and DAP 1.3 GyCM2.
System Analysis:
RA lead: P: 4.3 mV; Threshold: 0.9 V @ 0.4 ms; Impedance: 452 ohms.
RV lead: R: 15.4 mV; Threshold: 0.5 V @ 0.4 ms; Impedance: 526 ohms. Shock impedance 45 ohms.
LV lead (LV4=>LV3): R: 7.9 mV; Threshold: 1 V @ 0.4 ms; Impedance: 838 ohms. Electrical separation over 150 ms.
LV lead poles 1 and 3 have impedance over 3,000 c/w fracture. Poles 3 and 4 have normal impedance.
Post procedure EKG shows good BiV pacing morphology and QRS duration has decreased from 228 ms to 164 ms (computer measurements).
Final Programming: Tachy: VT1 150 (ATP only); VT 175 (ATP then shocks); VF:220 (ATPx1 then shocks); Leonides: DDDR 50-125. CS/LV lead now active. VV offset is -40 ms, LV first.
Conclusion: Uncomplicated Biventricular ICD implant and testing. Compensated filling pressures.
Recommendation: Routine post BiV ICD care. Incision check in our office in 1 week. Amiodarone 400 mg BID for 10 more days then 400 mg daily. Consider lowering amiodarone dose in 6 months. Monitor LV/CS lead for further malfunction.
cc: Glenn Sanon MD ([facility]).
[2023-11-30] MEDS: ASPIR LOW (ENTERIC COATED) 81 MG PO (17:08)
[2023-11-30] MEDS: ANCEF 5 IV (17:09)
[2023-11-30 18:03] LABS: Glucose - Point of Care 115 mg/dl (70-99)
--- NOTE | 2023-11-30 18:35 | PTCARENOTE ---
Pt received post procedure at 1420. Pt alert and oriented with no c/o of any pain. Left chest aquacell intact with no hematoma. Rep in room to interrogate the ICD. ECG's done as ordered by Dr. Cain during ICD testing. Pt oob amblulating to the
bathroom and to the lounge. No c/o offered.
[2023-11-30] MEDS: HEPARIN 5000 UNITS SC (20:59)
[2023-11-30] MEDS: ENTRESTO 49 MG/51 MG 1 TAB PO (20:59)
[2023-12-01 00:18] LABS: Glucose - Point of Care 99 mg/dl (70-99)
--- NOTE | 2023-12-01 01:14 | PTCARENOTE ---
Pt. received at change of shift, AV paced on tele with HR 50s-60s. Pt denies CP or SOB. Placed on CPAP by respiratory team at HS. L chest wall surgical site dressing C/D/I with no complications noted. Ambulating independently in room without
difficulty. Can make needs known. Call melendez within reach.
[2023-12-01] MEDS: ANCEF 5 IV (03:25)
[2023-12-01 03:35] VITALS: PULSE 63
[2023-12-01 03:37] VITALS: BP 95/62
[2023-12-01 03:54] VITALS: BMI 35.5
[2023-12-01 04:12] LABS: % Basophils 1.1 % (0-2); % Immature Granulocytes 0.5 % (0-0.5); % Lymphocytes 15.3 % (20.5-51.1); % Neutrophils 70.1 % (42.2-75.2); Absolute Basophils 0.1 10^3/uL (0-0.2); Absolute Eosinophils 0.1 10^3/uL (0-0.7); Absolute Monocytes 0.7 10^3/uL (0.1-0.6); Absolute Neutrophils 4.7 10^3/uL (1.4-6.5); Hematocrit 45.3 % (39.0-52.0); Hemoglobin 14.9 g/dL (13.0-18.0); Mean Corp Hgb Conc. 32.9 g/dL (33.0-37.0); Mean Corpuscular Hgb 23.6 pg (27.0-31.0); Mean Corpuscular Volume 71.8 fL (80.0-94.0); Mean Platelet Volume 9.8 fL (7.4-10.4); Nucleated Red Blood Cells % 0 % (-); Platelet Count 154 10^3/uL (130-400); Red Blood Cell Count 6.31 10^6/uL (4.70-6.10); Red Cell Dist. Width 19.8 % (11.5-14.5); White Blood Cell Count 6.6 10^3/uL (4.8-10.8)
[2023-12-01 04:30] LABS: Blood Urea Nitrogen 35 mg/dl (9-20); Calcium 8.9 mg/dl (8.4-10.2); Carbon Dioxide 22 mmol/L (22-30); Chloride 104 mmol/L (98-107); Estimated Creatinine Clearance 62 ml/min; Glucose 141 mg/dl (70-99); Magnesium 2.2 mg/dl (1.6-2.3); Potassium 4.1 mmol/L (3.5-5.1); Sodium 141 mmol/L (135-145); eGFR 56.48
[2023-12-01] MEDS: SYNTHROID 100 MCG PO (06:10)
[2023-12-01 07:25] LABS: Glucose - Point of Care 127 mg/dl (70-99)
[2023-12-01 07:48] VITALS: BP 108/75
[2023-12-01] MEDS: FARXIGA 10 MG PO (07:56)
[2023-12-01] MEDS: COREG 6.25 MG PO (07:56)
[2023-12-01] MEDS: PACERONE 400 MG PO (07:56)
[2023-12-01] MEDS: IMDUR (EXTENDED RELEASE) 30 MG PO (07:56)
[2023-12-01] MEDS: HEPARIN 5000 UNITS SC (07:57)
[2023-12-01] MEDS: FLUSH (NSS) 1 FLUSH IV (07:57)
[2023-12-01] MEDS: LIPITOR 40 MG PO (07:57)
[2023-12-01] MEDS: ENTRESTO 49 MG/51 MG 1 TAB PO (07:57)
[2023-12-01] MEDS: KCL 10 MEQ PO (07:57)
--- NOTE | 2023-12-01 09:44 | PTCARENOTE ---
The patient is aaox3, vss, av and v-pacing noted on the monitor. His left chest wall Aquacel dressing has scant old drainage. He has no complaints of pain. However, he did complain of a 'ticking' feeling on his mid left lateral chest area when he
pressed on it. He has been ambulatory in his room and in the san.
--- NOTE | 2023-12-01 10:55 | W.PN.CD ---
Today's Communication / Plan
-
Ok to discharge home on increased amiodarone dose
f/u for incision check in our office arranged
ulitimate follow up with Dr Andre and Christos at [facility].
Impression / Plan
-
Syncope related to ventricular tachycardia s/p ICD shocks:
-this diagnosis is threat to life
-EP evaluation are reviewed and appreciated, continue Amiodarone 400 mg BID for 9 more days then 400 mg daily. Consider lowering amiodarone dose in 6 months.
-Cath without new etiology of VT likely due to severe cardiomyopathy
-Atttempts at device upgrade EP :
Conclusion:
1. 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
2. Malfunction of LV lead placed in 2014 is confined to poles 1 and 2
3. ICD system was not changed. DFT testing was not performed. Filling pressures were not assessed.
4. Diaphragmatic stimulation threshold in current configuration is 3 V. LV output is programmed at 2 V.
Ultimate follow up with Dr Sher, incision check in 1 week in our office.
VT:
-ICD in place
-Status post IV amnio load transitioning to p.o. as above with increased dose
-continue coreg
CAD with hx [place]:
-Cath below
-No angina, continue OMT
HFrEF: acute on chronic
-today respiratory much improved,
-home gdmt resumed,
ICM:
-EF10-15% on echo, likely unchanged
-on coreg, Entresto, Jardiance, torsemide, bp doesn't allow for MRA right now
--bp soft at times for MRA, so can reconsider without op provider
-Finally did discuss with patient that he should talk to Dr Andre about referral for transplant/advanced therapy consideration now that he had a Sudden event and EF remains 10%
CKD:
-seems stable
-monitor
DM:
-as per medicine
Subjective:
He is worried about his heart, but feeling other junior ok.
Data:
Cath 11/30/23
HEMODYNAMIC DATA (mmHg)
LV 100/19 (EDP 32)
AO 93/63 (mean 76)
CORONARY ANGIOGRAPHY
Dominance: right
LM: normal
LAD: appears to be flush occluded just after the takeoff of a moderate caliber D1. There are L-L collaterals to small branch vessels on the anterolateral wall.
RAMUS: large vessel without significant disease.
LCx: moderate caliber vessel giving rise to several LPL branches. There is a 50% stenosis at the ostial LCx.
RCA: fills via left to right collaterals. The RCA could not be selectively engaged and did not fill on non-selective injection of the right cusp, suggesting it to be flush occluded.
CONCLUSIONS:
1. Two-vessel coronary artery disease with LAD INDIVIDUAL PENSION CONSULTANT and RCA INDIVIDUAL PENSION CONSULTANT with L-R collaterals. No culprit occlusion to explain the patient's VT.
2. Severely elevated LV filling pressure and no aortic stenosis.
RECOMMENDATIONS:
1. Expectant management after cardiac catheterization via right approach.
2. Aggressive diuresis and GDMT for heart failure.
3. EP consultation to address malfunctioning LV pacing lead.
Physical Exam
Vital Signs/Labs
Vital Signs
Temp Pulse Resp BP Pulse Ox
97.6 F 58 20 108/75 94
12/01/23 07:50 12/01/23 07:48 12/01/23 07:50 12/01/23 07:48 12/01/23 07:50
11/30/23 12/01/23 12/02/23
06:59 06:59 06:59
Actual Weight 106.1 kg 102.6 kg
12/01/23 03:36
12/01/23 03:36
PT 14.7 Sec (11.4-14.6) H 11/29/23 07:46
INR 1.14 11/29/23 07:46
APTT 28.9 Sec (23.4-35.0) 11/29/23 07:46
Magnesium 2.2 mg/dl (1.6-2.3) 12/01/23 03:36
Free T4 2.22 ng/dl (0.78-2.19) H 11/29/23 08:21
11/29/23 11/29/23
07:46 08:21
Qha-V-Zdagewbwwtk Pept Cancelled 869
LAB Results
11/29/23 11/29/23 11/29/23
07:46 08:21 17:08
Troponin I Cancelled 0.029 0.028
11/29/23 11/30/23 11/30/23
20:10 00:30 04:33
Troponin I Cancelled Cancelled 0.022
Physical Exam
Constitutional: No acute distress
Cardiovascular: Rhythm & rate is regular, Pedal edema is absent and JVD pressure is normal
Respiratory: Respiratory effort normal, Lungs clear to auscul., Wheeze Absent, Crackles Absent and Rhonchi Absent
Other: Cardiac Device Site (soft no hematoma, dressing CDI)
Data Reviewed
-
Date of Service: December 01, 2023
Medical Decision Making: Review of Case with other Provider (Dr Shaquille rivera for discharge)
--- NOTE | 2023-12-01 11:28 | W.PN.HOSP.TC ---
Addendum entered and electronically signed by Santhosh Corbin MD 12/01/23 11:37:
Time of discharge 38 minutes
Original Note:
Today's Communication/Plan
-
Monitor vital signs
see plan
Discharge today, discussed with cardiology
Continue with amiodarone
Assessment / Plan
Assessment / Plan
General: Well Nourished and No Apparent Distress
HEENT: Anicteric and Moist mucous membranes
Respiratory: Clear and Non Labored Respirations; No Wheezes
Cardiac: S1/S2 and Regular Rhythm
GI: Soft, Non Tender, Non Distended and Normal Bowel Sounds
Genito-urinary: No Lawrence
Musculoskeletal: No Edema
Neuro: Awake, Alert, Oriented and AO x 3
Psych: Calm and Intact Judgment/Insight
Syncope secondary to ventricular tachycardia status post ICD shocks
Now on Amio; Amiodarone 400 mg BID for 10 more days then 400 mg daily. Consider lowering amiodarone dose in 6 months.
Status post catheterization 11/28 without new etiology of ventricular tachycardia which likely is secondary to severe cardiomyopathy
EP is also involved in patient device will be upgraded 11/29. Procedure was canceled as patient had occluded left subclavian and left axillary vein. ICD was not changed however EP did change the settings. Patient will follow-up with outpatient
cardiology
Monitor potassium and magnesium
History of ventricular tachycardia
Has BiV ICD, will be upgraded 11/29. EP following
Follows up with Dr. Andre outpatient
CKD 3a
monitor creatinine
HLD
Ischemic cardiomyopathy
Echo with EF 10 to 15%, previously was 5 to 10%
Continue Coreg, Jardiance, Imdur
Entresto if blood pressure tolerates
CHF with reduced EF, chronic
Does not appear to be volume overloaded
Continue to monitor
Continue torsemide
Diabetes mellitus
Hold glimepiride
Low-dose sliding scale, Accu-Cheks
A1c 7.3
Hypothyroidism-continue Synthroid
Obesity due to excess calories
DVT prophylaxis
Heparin
Full code
Anticipated Discharge: Today
Subjective/Interval History
-
Date of Service: December 01, 2023
Denies pain
Objective Data
-
Labs:
Laboratory Results
12/01/23
03:36
WBC 6.6
Hgb 14.9
Hct 45.3
Plt Count 154
Sodium 141
Potassium 4.1
Chloride 104
Carbon Dioxide 22
BUN 35 H
Creatinine 1.4 H
Glucose 141 H
Calcium 8.9
Vital Signs:
Vital Signs
Temp Pulse Resp BP Pulse Ox
97.6 F 58 20 108/75 94
12/01/23 07:50 12/01/23 07:48 12/01/23 07:50 12/01/23 07:48 12/01/23 07:50
--- NOTE | 2023-12-01 11:36 | W.DCSUMMARY ---
Discharge Summary
Discharge Data
Date of Admission: 11/29/23
Date of Discharge: 12/01/23
-
Pending Results: No
Hospital Course
63-year-old male with past medical history of ventricular tachycardia status post ICD, hyperlipidemia, CKD, ischemic cardiomyopathy, CHF with reduced EF, diabetes mellitus, hypothyroidism, obesity came to the hospital after syncopal episode. Upon
interrogation of his ICD was determined that he had ventricular tachycardia episode with multiple shocks resulting in syncope. He was taken for cardiac catheterization which did not show any signs of significant CAD. There was also concern of
having LV lead malfunction for which she was seen by electrophysiology who took him to the OR for possible ICD replacement however procedure was held since he had occluded left subclavian and left axillary vein. Electrophysiology however was able
to change settings of his ICD. He was initially on amiodarone drip which was later transitioned to oral amiodarone prior to discharge. Cardiology recommended patient to follow-up with his outpatient bellows assembler soon for further management.
Echocardiogram was done which showed ejection fraction of 10 to 15%. Patient symptoms over time continue to improve and he was then discharged home with instructions to follow-up with all the physicians outpatient.
Discharge Plan
-
Patient Disposition: Home (Routine Discharge)
Discharge Diagnosis/Procedures: Ventricular tachycardia status post cardiac cath 11/28
Syncope related to ventricular tachycardia
Malfunction of LV lead
Diet: Low Cholesterol, 2 Gram Sodium and Restrict fluids to 48 oz
Driving Restrictions: VT with ICD shock cannot drive for 6 months
Bathing Restrictions: OK to Shower
Stand Alone Forms: DC Instructions- Cath/EP Lab, DC Inst - Implanted Device
Referrals:
[facility] [Provider Group] - 12/05/23 4:00 pm (Incision check appointment)
Stone Stevens MD [Family Provider] - in less than 1 week
Pierre Andre MD [Non-Admitting Privileges] - in four to six weeks
Prescriptions:
New
amiodarone 200 mg Tablet
400 mg PO BID Qty: 120 0RF
Rx Instructions:
Amiodarone 400 mg BID for 10 more days then 400 mg daily.
acetaminophen 325 mg Tablet
650 mg PO Q4HPRN PRN (Reason: mild pain) Qty: 0 0RF
Continued
levothyroxine 100 MCG tablet
100 mcg PO DAILY
atorvastatin 40 mg tablet
40 mg PO DAILY
carvedilol 6.25 mg tablet
6.25 mg PO BID
torsemide 20 mg tablet
20 mg PO DAILY
isosorbide mononitrate 30 mg tablet extended release 24 hr
30 mg PO DAILY
glimepiride 2 mg tablet
2 mg PO DAILY
potassium chloride 10 mEq tablet,ER particles/crystals
10 meq PO BID
omega-3 acid ethyl esters 1 gram capsule
1 g PO DAILY
Jardiance 10 mg tablet
10 mg PO DAILY
Entresto 49-51 mg tablet
1 tab PO Q12H
coenzyme Q10 [Co Q-10] 100 mg Capsule
100 mg PO DAILY
aspirin 81 mg Tablet,Delayed Release (Dr/Ec)
81 mg PO QPM
empagliflozin 10 mg Tablet
10 mg PO DAILY
Discontinued
amiodarone 200 mg tablet
200 mg PO DAILY
Discharge Orders:
Discharge Patient (As Directed); Ordered 12/01/23
Ordered By: Santhosh oCrbin
Care Plan Goals
Care Plan Goals:
Problem: Readiness for enhanced knowledge related to diagnosis and treatment plan
Goal: Understand your diagnosis and treatment plan needs, including medications if applicable.
Instructions: Know your diagnosis, underlying causes and treatment plan options, including medications if applicable. Consult with your health care team to learn about your diagnosis and treatment plan, including medications if applicable.
Discharge Date and Time
Discharge Date/Time: 12/01/23 13:58
Print Language: BARBADIAN
[2023-12-01 11:38] VITALS: BP 122/74
[2023-12-01 11:48] LABS: Glucose - Point of Care 154 mg/dl (70-99)
== END 2023-12-01 13:58 | disposition home or self-care (01) | DRG 286 ==
LOC: IVU 11:36
PROVIDERS: Internal Medicine Cardiovascular Disease; Nurse Practitioner; Student in an Organized Health Care Education/Training Program; ADMITTING PHYSICIAN Internal Medicine; CONSULT PHYSICIAN Internal Medicine Cardiovascular Disease; EMERGENCY PHYSICIAN Student in an Organized Health Care Education/Training Program; FAMILY PHYSICIAN Internal Medicine
PROC: 4B02XTZ Measurement of Cardiac Defibrillator, External Approach (ICD-10-PCS; 2023-11-29)
PROC: B2111ZZ Fluoroscopy of Multiple Coronary Arteries using Low Osmolar Contrast (ICD-10-PCS; 2023-11-29)
PROC: 5A09357 Assistance with Respiratory Ventilation, Less than 24 Consecutive Hours, Continuous Positive Airway Pressure (ICD-10-PCS; 2023-11-29)
PROC: 4A023N7 Measurement of Cardiac Sampling and Pressure, Left Heart, Percutaneous Approach (ICD-10-PCS; 2023-11-29)
PROC: 05JY3ZZ Inspection of Upper Vein, Percutaneous Approach (ICD-10-PCS; 2023-11-30)
PROC: B51N1ZZ Fluoroscopy of Left Upper Extremity Veins using Low Osmolar Contrast (ICD-10-PCS; 2023-11-30)
DX: I47.20 Ventricular tachycardia, unspecified (principal); I50.23 Acute on chronic systolic (congestive) heart failure; T82.110A Breakdown (mechanical) of cardiac electrode, initial encounter; I13.0 Hypertensive heart and chronic kidney disease with heart failure and stage 1 through stage 4 chronic kidney disease, or unspecified chronic kidney disease; I42.9 Cardiomyopathy, unspecified; I82.B12 Acute embolism and thrombosis of left subclavian vein; Y71.2 Prosthetic and other implants, materials and accessory cardiovascular devices associated with adverse incidents; Y83.8 Other surgical procedures as the cause of abnormal reaction of the patient, or of later complication, without mention of misadventure at the time of the procedure; R55 Syncope and collapse; E11.22 Type 2 diabetes mellitus with diabetic chronic kidney disease; N18.31 Chronic kidney disease, stage 3a; I25.10 Atherosclerotic heart disease of native coronary artery without angina pectoris; E66.09 Other obesity due to excess calories; E78.00 Pure hypercholesterolemia, unspecified; W18.39XA Other fall on same level, initial encounter; Y93.01 Activity, walking, marching and hiking; Y92.512 Supermarket, store or market as the place of occurrence of the external cause; I25.5 Ischemic cardiomyopathy; E03.9 Hypothyroidism, unspecified; G47.30 Sleep apnea, unspecified; Y92.9 Unspecified place or not applicable; Z53.09 Procedure and treatment not carried out because of other contraindication; I25.2 Old myocardial infarction; Z79.890 Hormone replacement therapy; Z79.82 Long term (current) use of aspirin; Z79.84 Long term (current) use of oral hypoglycemic drugs; Z86.79 Personal history of other diseases of the circulatory system; Z95.810 Presence of automatic (implantable) cardiac defibrillator; Z98.61 Coronary angioplasty status; Z87.891 Personal history of nicotine dependence; Z68.35 Body mass index [BMI] 35.0-35.9, adult; Z11.52 Encounter for screening for COVID-19
CPT/HCPCS: 33226; 70450; 71045; 80048; 80306; 81003; 82077; 82962; 83036; 83735; 83880; 84132; 84439; 84443; 84484; 85025; 85610; 85730; 87811; 93005; 93288; 93306; 93458; 94660; 96360; 99285; C1769; C1894; Q9950; Q9967

== ENCOUNTER 2024-05-03 08:39 | Inpatient (IN) | payer OTHER, SELFPAY ==
[2024-05-03] VITALS (50 sets, daily range): BP systolic 77–135; BP diastolic 47–99; PULSE 51; BMI 38.7
--- NOTE | 2024-05-03 05:42 | ED.GENMED ---
History of Present Illness
<DO Nury Rhoades Last Filed: 05/03/24 07:12>
General
Chief Complaint: Heart Rate Problem
Source: patient and previous hospital records (This hospitalization November 2023 for recurrent ventricular tachycardia)
Exam Limitations: none
Time Seen by Provider: 05/03/24 05:30
Nursing documentation reviewed up to this point in time: agreed with
History of Present Illness
History of Present Illness:
This is a 63-year-old gentleman with history of CAD, cardiomyopathy with a EF of 10 to 15%, history of ventricular tachycardia with AICD in place. Previous hospitalization November 2023 for syncope related to V. tach with ICD shocks.
Cardiac catheterization at that time showed two-vessel CAD with [id number] collaterals. No evidence of culprit occlusion to explain V. tach. He was started on amiodarone as well as aggressive diuresis for heart failure.
He brings himself to the ED this morning with complaints of chest pain that has been ongoing throughout the night tonight as well as some palpitations feeling that his heart is beating rapidly. He denies dizziness nor lightheadedness, no nausea nor
vomiting. He does note mild shortness of breath. No cough nor fever.
He states he has had multiple previous heart attacks, unsure if current symptoms feel similar.
EKG in triage concerning for STEMI versus slow/wide-complex V. tach. STEMI alert initiated
Past History
<DO Nury Rhoades Filed: 05/03/24 07:12>
Past History
ED Past Medical History: Arrthythmia (V. tach), CAD, CHF, HTN, Hypercholesterolemia, NIDDM, CA, Renal failure, Hypothyroidism and Other (Trach)
ED Past Surgical History: Cardiac (Pacemaker)
Social History
Tobacco: Other
Alcohol: Other
Drug: Other
Personal: Other
Employment: Other
Family History
Family History: Unable to obtain
Phy Exam
<DO Nury Rhoades Filed: 05/03/24 07:12>
Physical Exam
Physical Exam:
GENERAL: 63-year-old obese gentleman appears somewhat older than stated age. Appears in no acute distress.
EYE: pupils equal and reactive. anicteric
NECK: Supple, nontender, no meningismus, no significant adenopathy. Mild JVD.
ENT: oral mucosa is moist. No rhinorrhea.
CARDIAC: Regular rate rhythm, tachycardic at 110.
LUNGS: Mild resting tachypnea. Scant rales at bases.
ABDOMEN: Obese, soft, nondistended, without focal tenderness
NEUROLOGICAL: Alert and oriented x3, no focal neuro deficits. Gait is steady.
SKIN: Warm and dry, normal color, skin intact. No rash.
MUSCULOSKELETAL: No C/C/E. peripheral pulses are full and equal b/l. No palpable tenderness.
PSYCH: Normal and appropriate interaction.
Course
<Kerry Mares, DO - Last Filed: 05/03/24 07:12>
Orders/Labs/Results
Orders:
Orders
05/03/24 05:25
Electrocardiogram (*1) Urgent
Reason for Study: Palpitations
EKG- Treatment ONCE
05/03/24 05:41
Cardiac Monitoring- Treatment ONCE
Interrogate Pacemaker- Treatment ONCE
CR Chest Portable - 1 View Urgent
Comment:
Reason For Exam: CP
Reason Study Needs to be Portable: Unable to Transport
05/03/24 05:55
Complete Blood Count/With Diff Urgent
Comprehensive Metabolic Panel Urgent
Magnesium Urgent
NT-proBNP Urgent
PTT Urgent
Troponin I Urgent
05/03/24 05:56
Electrocardiogram (*1) Urgent
Reason for Study: Chest Pain
EKG- Treatment ONCE
05/03/24 07:06
Aspirin Chewable [Low Strength Aspirin] 324 mg .ROUTE .STK-MED ONE
Ticagrelor [Brilinta] 180 mg .ROUTE .STK-MED ONE
05/03/24 07:13
Propofol [Diprivan] 20 ml .ROUTE .STK-MED
05/03/24 08:06
Propofol [Diprivan] 40 ml .ROUTE .STK-MED
05/03/24 08:13
Amiodarone [Cordarone] 150 mg Dextrose 5%/Water 100 ml [D5w] 100 ml IV NOW
05/03/24 08:15
Amiodarone [Cordarone] 900 mg DEXTROSE 5% PVC-free BAG [D5W PVC-free BAG] 500 ml IV PER PROTOCOL
Initial Dose in mg/min:: 1
Duration of initial dose (hours):: 6
Subsequent dose in mg/min:: 0.5
Duration of subsequent dose (hours):: 18
Maximum dose in mg/min:: 1
Hold and notify provider if:: Heart rate < 60 BPM or SBP < 90 mmHg or MAP < 60 mmHg
05/03/24 08:19
Admit/Transfer Patient As Directed
Co-Sign Provider:
Level of Care: Inpatient admission
Assign to:: IVU
Physician / Group: jose rafael sofia
Diagnosis: slow vt
Reason for Hospitalization: slow vt
Expected length of stay greater than two midnights?: Yes
ELOS- Estimated Length of Stay in days: 3
I certify the patient meets the requirements for IP care: Yes
PRN Pain Medication Management As Directed
May give lesser potent ordered pain med per pt: Yes
preference::
Protocol:: Medication orders for pain may be administered in a
manner that supports deferring to patient preference
when the pt is:
- Requesting an ordered lesser potent pain medication.
Least to most potent pain medications are defined
as: acetaminophen < NSAID < tramadol < opioids
(morphine, oxycodone, hydromorphone).
- Requesting a lesser dose of the same medication IF
ORDERED.
- Requesting a less intrusive route of administration
if both routes are prescribed by the provider (PO <
IV).
05/03/24 08:26
ECG [Electrocardiogram (*1)] Routine
Reason for Study: Tachycardia
Accucheck [Bedside Glucose Monitoring] As Directed
Frequency: AC&HS
05/03/24 09:00
Dextrose 50%-Water [Dextrose 50% Syringe] 12.5 grams IV [id number] PRN
Furosemide [Lasix] 40 mg IV BID AT 0800,1600
Glucagon [GlucaGen] 1 mg IM PRN PRN
Mexiletine [Mexitil] 150 mg PO Q8
05/03/24 10:56
DX Deep Vein Thrombosis Video Routine
05/03/24 11:00
Sacubitril 49/Valsartan 51 [Entresto 49 mg/51 mg] 1 tab PO Q12H
05/03/24 11:30
Insulin Aspart Corrective Low [Novolog Flexpen-Low Resistance] See Protocol SC AC
05/03/24 18:00
Aspirin Low Dose EC [Aspir Low (Enteric Coated)] 81 mg PO QPM
05/03/24 20:00
Carvedilol [Coreg] 6.25 mg PO BID
Heparin 5,000 units SC Q12
05/04/24 06:00
Levothyroxine [Synthroid] 100 mcg PO DAILY@0600
05/04/24 08:00
Atorvastatin [Lipitor] 40 mg PO DAILY
ISOSORBIDE MONOnitrate ER [Imdur (Extended Release)] 30 mg PO DAILY
Abnormal Lab Results
05/03/24
05:55
RBC 6.70 H 10^6/uL
(4.70-6.10)
MCV 75.7 L fL
(80.0-94.0)
MCH 24.9 L pg
(27.0-31.0)
MCHC 32.9 L g/dL
(33.0-37.0)
RDW 19.6 H %
(11.5-14.5)
Absolute Monos (auto) 0.8 H 10^3/uL
(0.1-0.6)
Monocytes % 9.8 H %
(1.7-9.3)
Carbon Dioxide 19 L mmol/L
(22-30)
BUN 37 H mg/dl
(9-20)
Creatinine 1.4 H mg/dL
(0.7-1.3)
Glucose 254 H mg/dl
(70-99)
Total Bilirubin 1.8 H mg/dl
(0.2-1.3)
AST 60 H U/L
(17-59)
ALT 68 H U/L
(0-50)
05/03/24 05:55
05/03/24 05:55
Vital Signs
Initial and Last Documented VS:
Initial Vital Signs
Resp
16
05/03/24 05:32
Last Documented Vital Signs
Temp Pulse Resp BP Pulse Ox
98.1 F 50 16 112/75 96
05/03/24 12:32 05/03/24 12:32 05/03/24 12:32 05/03/24 10:59 05/03/24 12:32
<Husam Loja, DO - Last Filed: 05/03/24 15:26>
Orders/Labs/Results
Orders:
Orders
05/03/24 05:25
Electrocardiogram (*1) Urgent
Reason for Study: Palpitations
EKG- Treatment ONCE
05/03/24 05:41
Cardiac Monitoring- Treatment ONCE
Interrogate Pacemaker- Treatment ONCE
CR Chest Portable - 1 View Urgent
Comment:
Reason For Exam: CP
Reason Study Needs to be Portable: Unable to Transport
05/03/24 05:55
Complete Blood Count/With Diff Urgent
Comprehensive Metabolic Panel Urgent
Magnesium Urgent
NT-proBNP Urgent
PTT Urgent
Troponin I Urgent
05/03/24 05:56
Electrocardiogram (*1) Urgent
Reason for Study: Chest Pain
EKG- Treatment ONCE
05/03/24 07:06
Aspirin Chewable [Low Strength Aspirin] 324 mg .ROUTE .STK-MED ONE
Ticagrelor [Brilinta] 180 mg .ROUTE .STK-MED ONE
05/03/24 07:13
Propofol [Diprivan] 20 ml .ROUTE .STK-MED
05/03/24 08:06
Propofol [Diprivan] 40 ml .ROUTE .STK-MED
05/03/24 08:13
Amiodarone [Cordarone] 150 mg Dextrose 5%/Water 100 ml [D5w] 100 ml IV NOW
05/03/24 08:15
Amiodarone [Cordarone] 900 mg DEXTROSE 5% PVC-free BAG [D5W PVC-free BAG] 500 ml IV PER PROTOCOL
Initial Dose in mg/min:: 1
Duration of initial dose (hours):: 6
Subsequent dose in mg/min:: 0.5
Duration of subsequent dose (hours):: 18
Maximum dose in mg/min:: 1
Hold and notify provider if:: Heart rate < 60 BPM or SBP < 90 mmHg or MAP < 60 mmHg
05/03/24 08:19
Admit/Transfer Patient As Directed
Co-Sign Provider:
Level of Care: Inpatient admission
Assign to:: IVU
Physician / Group: jose rafael sofia
Diagnosis: slow vt
Reason for Hospitalization: slow vt
Expected length of stay greater than two midnights?: Yes
ELOS- Estimated Length of Stay in days: 3
I certify the patient meets the requirements for IP care: Yes
PRN Pain Medication Management As Directed
May give lesser potent ordered pain med per pt: Yes
preference::
Protocol:: Medication orders for pain may be administered in a
manner that supports deferring to patient preference
when the pt is:
- Requesting an ordered lesser potent pain medication.
Least to most potent pain medications are defined
as: acetaminophen < NSAID < tramadol < opioids
(morphine, oxycodone, hydromorphone).
- Requesting a lesser dose of the same medication IF
ORDERED.
- Requesting a less intrusive route of administration
if both routes are prescribed by the provider (PO <
IV).
05/03/24 08:26
ECG [Electrocardiogram (*1)] Routine
Reason for Study: Tachycardia
Accucheck [Bedside Glucose Monitoring] As Directed
Frequency: AC&HS
05/03/24 09:00
Dextrose 50%-Water [Dextrose 50% Syringe] 12.5 grams IV C30CIPT PRN
Furosemide [Lasix] 40 mg IV BID AT 0800,1600
Glucagon [GlucaGen] 1 mg IM PRN PRN
Mexiletine [Mexitil] 150 mg PO Q8
05/03/24 10:56
DX Deep Vein Thrombosis Video Routine
05/03/24 11:00
Sacubitril 49/Valsartan 51 [Entresto 49 mg/51 mg] 1 tab PO Q12H
05/03/24 11:30
Insulin Aspart Corrective Low [Novolog Flexpen-Low Resistance] See Protocol SC AC
05/03/24 18:00
Aspirin Low Dose EC [Aspir Low (Enteric Coated)] 81 mg PO QPM
05/03/24 20:00
Carvedilol [Coreg] 6.25 mg PO BID
Heparin 5,000 units SC Q12
05/04/24 06:00
Levothyroxine [Synthroid] 100 mcg PO DAILY@0600
05/04/24 08:00
Atorvastatin [Lipitor] 40 mg PO DAILY
ISOSORBIDE MONOnitrate ER [Imdur (Extended Release)] 30 mg PO DAILY
Abnormal Lab Results
05/03/24
05:55
RBC 6.70 H 10^6/uL
(4.70-6.10)
MCV 75.7 L fL
(80.0-94.0)
MCH 24.9 L pg
(27.0-31.0)
MCHC 32.9 L g/dL
(33.0-37.0)
RDW 19.6 H %
(11.5-14.5)
Absolute Monos (auto) 0.8 H 10^3/uL
(0.1-0.6)
Monocytes % 9.8 H %
(1.7-9.3)
Carbon Dioxide 19 L mmol/L
(22-30)
BUN 37 H mg/dl
(9-20)
Creatinine 1.4 H mg/dL
(0.7-1.3)
Glucose 254 H mg/dl
(70-99)
Total Bilirubin 1.8 H mg/dl
(0.2-1.3)
AST 60 H U/L
(17-59)
ALT 68 H U/L
(0-50)
05/03/24 05:55
05/03/24 05:55
Vital Signs
Initial and Last Documented VS:
Initial Vital Signs
Resp
16
05/03/24 05:32
Last Documented Vital Signs
Temp Pulse Resp BP Pulse Ox
98.1 F 50 16 112/75 96
05/03/24 12:32 05/03/24 12:32 05/03/24 12:32 05/03/24 10:59 05/03/24 12:32
Procedures
<Husam Loja DO - Last Filed: 05/03/24 15:26>
Cardioversion
Indication:: Other (ventricular tachycardia)
Synchronized?: Yes
Energy Used: Other (360)
Number of attempts: 1
Successful?: Yes
ASA Risk Score: Class III
Any reaction or bad outcome to prior sedation/anesthesia?: No history of a reaction
Sedation level to be attained: moderate
Chart and allergies reviewed: Yes
Patient reassessed prior to sedation: Yes
Time out completed at (validating right patient & procedure): 08:20
History of difficult intubation: No
Airway free of obstruction: Yes
Patient has a gag reflex: Yes
Patient is able to open mouth: Yes
Patient has no dentures: Yes
Patient has no loose teeth: Yes
Medication administered by Provider during Moderate Sedation: IV Propofol (mg)
Total dose administered: 80
Time drug administered: 08:20
Start Time: 08:20
Stop Time: 08:31
<Kerry Mares DO - Last Filed: 05/03/24 07:12>
MDM/Problems Addressed
Differential Diagnosis Includes:
EKG concerning for STEMI versus slow V. tach.
STEMI alert initiated.
Case discussed with Dr. Koroma and EKG images from [facility] as well November 30 transmitted via [employer] text.
Patient currently hemodynamically stable. Has been given chewable aspirin 324 mg as well as 180 mg of Brilinta�chewed.
Will urgently interrogate AICD.
Will check labs, portable chest x-ray.
Chronic conditions affecting care: DM, HTN, CAD, Cardiomyopathy, Arrhythmia and Kidney disease
<Kerry Mares DO - Last Filed: 05/03/24 07:12>
*Radiology
Radiology exam reviewed: preliminary read by ED provider (Chest x-ray shows cardiomegaly, mild interstitial fullness concerning for mild CHF.)
*Pulse Oximetry
Patient hypoxic: no
*EKG
Interpreted by ED Provider?: Yes
Interpretation: abnormal
Comparison EKG: changes noted
Rate: tachycardiac
QRS Pattern: wide non-specific
Ischemia: other (Wide-complex tachycardia at 110 bpm concerning for STEMI versus slow V. tach)
*[employer] Interpretation
Rate: tachycardiac
Interpretation: abnormal
Rhythm: other (Wide-complex ventricular paced with STEMI versus slow V. tach)
*Critical Care Note
Total Time (30-74mins, 75-104mins- exclusive of procedures): 45
comment:
Critical care statement: A total of 45 minutes of critical care time was provided for this patient. This includes management of unstable vital signs, evaluation of the patient at bedside, reviewing the patient's pertinent medical records, discussion
with consultants, review of old EKGs and review of pertinent medical records. This time with separate from time utilized to perform the aforementioned documented procedures
<Kerry Mares, - Last Filed: 05/03/24 07:12>
Update Note
Update Note:
05:55
Patient currently chest pain-free. No palpitations. No shortness of breath.
Will repeat EKG.
Pacemaker has been interrogated�awaiting results.
Awaiting cardiology as well as Loan Services Professional arrival.
06:[address] Koroma has evaluated pt at bedside.
pacer interrogation concerning for slow v-tach. EKG concerning for slow V-tach and not STEMI
He has discussed case with Dr Chen who is enroute to evaluate pt at bedside. \\
At this time, pt opal not be taken to lab coordinator.
Troponin (-) thus far and pt remains CP remains.
Cardiology considering cardioversion of slow V-tach.
<Husam Loja, DO - Last Filed: 05/03/24 15:26>
Update Note
Update Note:
05:55
Patient currently chest pain-free. No palpitations. No shortness of breath.
Will repeat EKG.
Pacemaker has been interrogated�awaiting results.
Awaiting cardiology as well as Loan Services Professional arrival.
06:[address] Koroma has evaluated pt at bedside.
pacer interrogation concerning for slow v-tach. EKG concerning for slow V-tach and not STEMI
He has discussed case with Dr Chen who is enroute to evaluate pt at bedside. \\
At this time, pt opal not be taken to lab coordinator.
Troponin (-) thus far and pt remains CP remains.
Cardiology considering cardioversion of slow V-tach.
0845-patient evaluated by Dr. Chen. She feels the best plan is synchronized cardioversion here in the emergency room with additional amiodarone and amiodarone drip. Patient was successfully cardioverted with sedation. He tolerated the
procedure well. He will be admitted to the IVU under the hospitalist service.
ED Attending Note
<Kerry Mares, DO - Last Filed: 05/03/24 07:12>
-
Portions of this chart may have been created with voice recognition software.� Occasional wrong word or��sound alike� substitutions may have occurred due to the inherent limitations of voice recognition software.
Discharge Plan
Departure
Patient Disposition: Admit
Date of Disposition: 05/03/24
Time of Disposition: 06:45
Admit to doctor: Gustavo
Presentation/result/management discussed w/ accepting MD/DO: cardiology
Discharge Problem:
Chest Pain rule out ACS, Sustained monomorphic ventricular tachycardia
Interventions
Interventions:
*Risk Screen - Suicide Last Done: 05/03/24 11:23
*General Assessment Last Done: 05/03/24 06:18
*Neglect/Abuse Screening Last Done: 05/03/24 06:18
ED- Fall Risk Assessment Last Done: 05/03/24 07:58
*ED COVID-19 Vaccine History Last Done: 05/03/24 11:23
*Nursing Disposition Last Done: 05/03/24 11:04
ED- Cardiac Assessment Last Done: 05/03/24 07:58
ED- Pulmonary Assessment Last Done: 05/03/24 07:58
[2024-05-03 06:05] LABS: % Basophils 0.8 % (0-2); % Eosinophils 0.7 % (0-6); % Immature Granulocytes 0.2 % (0-0.5); % Lymphocytes 20.5 % (20.5-51.1); % Monocytes 9.8 % (1.7-9.3); Absolute Basophils 0.1 10^3/uL (0-0.2); Absolute Eosinophils 0.1 10^3/uL (0-0.7); Absolute Lymphocytes 1.7 10^3/uL (1.2-3.4); Absolute Monocytes 0.8 10^3/uL (0.1-0.6); Absolute Neutrophils 5.6 10^3/uL (1.4-6.5); Hematocrit 50.7 % (39.0-52.0); Hemoglobin 16.7 g/dL (13.0-18.0); Mean Corp Hgb Conc. 32.9 g/dL (33.0-37.0); Mean Corpuscular Hgb 24.9 pg (27.0-31.0); Mean Corpuscular Volume 75.7 fL (80.0-94.0); Mean Platelet Volume 10.2 fL (7.4-10.4); Nucleated Red Blood Cells % 0 % (-); Platelet Count 177 10^3/uL (130-400); Red Cell Dist. Width 19.6 % (11.5-14.5); White Blood Cell Count 8.2 10^3/uL (4.8-10.8)
[2024-05-03 06:16] LABS: APTT 30.4 Sec (23.4-35.0)
[2024-05-03 06:32] LABS: ALT (SGPT) 68 U/L (0-50); AST (SGOT) 60 U/L (17-59); Albumin 4.6 g/dl (3.5-5.0); Alkaline Phosphatase 122 U/L (38-126); Blood Urea Nitrogen 37 mg/dl (9-20); Calcium 8.8 mg/dl (8.4-10.2); Carbon Dioxide 19 mmol/L (22-30); Chloride 102 mmol/L (98-107); Estimated Creatinine Clearance 64 ml/min; Glucose 254 mg/dl (70-99); Magnesium 2.2 mg/dl (1.6-2.3); Potassium 4.2 mmol/L (3.5-5.1); Sodium 137 mmol/L (135-145); Total Bilirubin 1.8 mg/dl (0.2-1.3); Total Protein 7.3 g/dl (6.3-8.2); eGFR 56.48
[2024-05-03 06:36] LABS: NT-proBNP 1360 pg/ml; Troponin I 0.029 ng/ml
--- NOTE | 2024-05-03 08:10 | CON.CAR ---
Consultation
Consultation Request
Date/Time Consultation Requested: 05/03/2024 0745
Date/Time Consultation Performed: 05/03/2024 0745
Requesting Provider: Dr. Loja
Performing Provider: Dr. Chen
Reason for Consultation: SOB, palpitations, VT
Medical History
-
History of Present Illness:
63 y/o pt known to DR. Alon Banks [facility]. Presents to ER with complaints of increased SOB and palpitations. He could feel his heart beating harder and heart rates were variable on his home pulse ox. He believes this started around 4 am .
He drove to the ER. He was noted to be in slow VT. He denies presyncope or lightheadedness. He denies CP with event. Yesterday he was able to walk around [employer] to shop without difficulty.
Past Medical History
Past Medical History: Arrhythmias (VT, BIV ICD), CAD, CHF (HFrEF), Hypercholesterolemia, Hypothyroidism, NIDDM and Renal Failure (CKD 3a)
Past Surgical History: Other ( BIV-ICD, R hip ORIF 02/2022)
Social History
Tobacco: Former Smoker (quit greater than 10 yrs ago)
Alcohol: None
Drug: None
Living: With Family
Family History
Family History: Reviewed & Not Pertinent
Allergies / Home Medications
Allergy/AdvReac Type Severity Reaction Status Date / Time
No Known Allergies Allergy Verified 05/03/24 05:25
�Medication �Instructions �Recorded �Confirmed �Type
levothyroxine 100 mcg tablet 100 mcg PO DAILY Thyroid 09/03/18 11/29/23 History
atorvastatin 40 mg tablet 40 mg PO DAILY High cholesterol 03/09/22 11/29/23 History
carvedilol 6.25 mg tablet 6.25 mg PO BID Blood pressure 03/09/22 11/29/23 History
coenzyme Q10 100 mg capsule (Co 100 mg PO DAILY Supplement 03/09/22 11/29/23 History
Q-10)
empagliflozin 10 mg tablet 10 mg PO DAILY Diabetes 03/09/22 11/29/23 History
(Jardiance)
glimepiride 2 mg tablet 2 mg PO DAILY Diabetes 03/09/22 11/29/23 History
isosorbide mononitrate 30 mg 30 mg PO DAILY Heart 03/09/22 11/29/23 History
tablet,extended release 24 hr disease/condition
omega-3 acid ethyl esters 1 gram 1 g PO DAILY Supplement 03/09/22 11/29/23 History
capsule
potassium chloride 10 mEq 10 meq PO BID Electrolyte Repletion 03/09/22 11/29/23 History
tablet,extended release(part/cryst)
sacubitril 49 mg-valsartan 51 mg 1 tab PO Q12H Heart Failure 03/09/22 11/29/23 History
tablet (Entresto)
torsemide 20 mg tablet 20 mg PO DAILY Fluid 03/09/22 11/29/23 History
retention/Swelling
aspirin 81 mg tablet,delayed 81 mg PO QPM 11/29/23 11/29/23 History
release
empagliflozin 10 mg tablet 10 mg PO DAILY 11/29/23 11/29/23 History
acetaminophen 325 mg tablet 650 mg (2 x 325 mg) PO Q4HPRN PRN 12/01/23 Rx
mild pain #0 tabs
amiodarone 200 mg tablet 400 mg (2 x 200 mg) PO BID #120 12/01/23 Rx
tabs
Review of Systems
-
History Source: Patient
Constitutional: No Symptoms
EENT: No Symptoms
Respiratory: Trouble Breathing
Cardiac: Palpitations
Abdomen/GI: No Symptoms
: No Symptoms
Musculoskeletal: No Symptoms
Neurological: No Symptoms
Physical Exam
Vital Signs
Temp Pulse Resp BP Pulse Ox
98.0 F 109 22 125/99 96
05/03/24 05:36 05/03/24 07:45 05/03/24 07:45 05/03/24 07:00 05/03/24 07:58
Lab Results
05/03/24 05:55
05/03/24 05:55
Troponin I 0.029 ng/ml 05/03/24 05:55
Gdk-K-Lnxkyacjoqx Pept 1360 pg/ml 05/03/24 05:55
Physical Exam
General: Well Developed, Well Nourished and No Apparent Distress
HEENT: Normocephalic and Moist Mucous Membranes
Respiratory: Clear
Cardiac: S1/S2 and Regular Rhythm
Breast: Deferred by me
GI: Soft, Non Tender and Normal Bowel Sounds
Musculoskeletal: No Edema
Skin: Warm and Dry
Neuro: AO x 3
Impression / Plan
-
VT:
-Pt with slow VT . HR's 90-120's.
-home amio 400mg daily
-Plan urgent cardioversion in ER now
-IV amiodarone, start mexiletine
-Consult EP for possible ablation
-HUMAN RESOURCE INTERN-D in place ( [employer] )
CAD:
-con't medical therapy
-C in 11/2023- Two-vessel coronary artery disease with LAD MOTORCOACH OPERATOR and RCA MOTORCOACH OPERATOR with L-R collaterals. No culprit occlusion to explain the patient's VT.
Severely elevated LV filling pressure and no aortic stenosis.
HFrEF:
- Echo 11/29/23 EF 10-15, global hypokinesis, mildly dilated RV and reduced function, mild MR
-update echo
-BNP 1300
-IV diuresis- lasix 40mg BID
-con't GDMT
-consider OP ref to transplant center
CKD3a:
- monitor with diuresis
DM:
-per primary team
-con't current meds
hyperlipidemia:
-chronic statin
Data Reviewed
-
EKG: Tracing Personally Visualized and interpreted (Slow VT 110 bpm)
Radiology: Report Reviewed by me (CXR images with markings of CHF)
Medical Tests (Nuc Med, Echo etc): Report Reviewed by me (Echo 11/2023 left ventricle is severely dilated. LV ejection fraction is 10-15% by,Global hypokinesis,Mildly dilated right ventricle with reduced systolic function. Mild mitral
regurgitation. Right heart pressures could not be determined. The IVC is of normal size with normal respiroph) and Other (11/29/23 Dominance: right LM: normal LAD: appears to be flush occluded just after the takeoff of a moderate caliber D1. There
are L-L collaterals to small branch vessels on the anterolateral wall. RAMUS: large vessel without significant disease. LCx: moderate caliber vessel giving rise to several LPL)
Labs: Labs Reviewed by me
Old Records: Reviewed
[2024-05-03] MEDS: CORDARONE 103 MG IV (09:04)
[2024-05-03] MEDS: CORDARONE 518 MG IV (09:19)
[2024-05-03] MEDS: LASIX 40 MG IV ×2 (09:46→16:07)
[2024-05-03] MEDS: MEXITIL 150 MG PO ×3 (09:46→23:10)
--- NOTE | 2024-05-03 10:47 | W.PN.UPDATE ---
Update Note
Progress Note Update
63-year-old patient with a past medical history of heart failure with reduced EF�10 to 15%,Ventricular tachycardia with recent hospitalization in November 2024 with resultant reprogramming of his PAINTER SPRAY-D device, CAD with totally occluded RCA,
proximal 50% left circumflex, LAD occlusion after the D1 with left to left collaterals after catheterization 11/30/2023, diabetes, CKD, and morbid obesity. Case discussed with Dr. Pradhan this morning as he was called for a STEMI alert. There was
concern that his EKG was consistent with STEMI as patient was complaining of uncomfortableness in his chest and palpitations. Evaluation included a device interrogation showing slow ventricular tachycardia. History more c/w VT than STEMI. Plan was
for admission and evaluation for recurrent VT. He tells me he woke up this morning from rest and had palpitations. He had an uneasiness in his chest but no chest pain. Yesterday he was up and feeling normal walking around [employer]. He complies
with his medications. He recently saw Dr. Andre and was told everything was stable. At the bedside, he appears dyspneic and looks uncomfortable. He has a regular rate and rhythm, lungs are clear to auscultation bilaterally, has an obese abdomen,
lower extremity edema is absent. Telemetry still with a wide complex rhythm in the low 100s.
VT:
-Pt with slow VT under detection rate.
-D/w Dr Loja, we arranged for urgern cardioversion under sedation in the ED,
-D/w EP and agree with DCCV, recommended IV amio re load and adding Mexilitine
-Formal EP consult planned for Sunday t/c ablation candidacy given recurrent VT in myopathic heart
-PAINTER SPRAY-D in place ( [employer] )
HFrEF:
- Echo 11/29/23 EF 10-15, global hypokinesis, mildly dilated RV and reduced function, mild MR
-update echo
-BNP 1300, wt is up from last discharge--d/c wt was 102.6 now 11.9kg.
-IV diuresis- lasix 40mg BID, with intensive monitoring.
-con't GDMT
-consider OP ref to transplant center
CAD:
-con't medical therapy, trop low
-[facility] in 11/2023- Two-vessel coronary artery disease with LAD SENIOR PRINCIPAL and RCA SENIOR PRINCIPAL with L-R collaterals. No culprit occlusion to explain the patient's VT.
Severely elevated LV filling pressure and no aortic stenosis.
CKD3a:
- monitor with diuresis
DM:
-per primary team
-con't current meds
hyperlipidemia:
-chronic statin
Overall CCT spent in direct care of the patient at the bedside, review of care with Liliana Rodrigues. Review of records was 74 minutes
Overall this is a high risk situation with recurrent VT in the setting of severe cardiomyopathy.
[2024-05-03] MEDS: ENTRESTO 49 MG/51 MG PO (12:06)
[2024-05-03 12:11] LABS: Glucose - Point of Care 126 mg/dl (70-99)
[2024-05-03] MEDS: NOVOLOG FLEXPEN-LOW RESISTANCE SC (12:12)
--- NOTE | 2024-05-03 12:30 | PTCARENOTE ---
Assumed care of pt upon tsf from ED. Pt arrives in room aaox3, VSS, CM shows A/V [id number]. Amiodarone drip running through RFA at 1 mg/hr, site remains patent without redness or swelling. Pt denies any pain or discomfort at this time, will
continue to monitor closely.
--- NOTE | 2024-05-03 13:15 | HPS.HSE ---
Family Physician
-
Family Physician: NOT KNOW UNKNOWN - PT DOES
Chief Complaint
-
History of Present Illness
63 male history of HFrEF 10 to 15% s/p SCORE CALLER-D with recent VT hospitalization, CAD with METAL SORTER of RCA, proximal 50 left circumflex, LAD occlusion willing, diabetes, CKD, morbid obesity. Presents as irritable with a pounding sensation. States his heart
rate was going between 40s and 100. He admits to being compliant with his medications and recently saw his primary peer support specialist. Provide you can find he continues to state that he feels uncomfortable and on the easy but denies chest discomfort.
Medical History
Past Medical History
Past Medical History: Reports Arrhythmia, CAD, CHF, NIDDM and Other (sleep apnea)
Past Surgical History: Reports Cardiac
Social History
Tobacco: Former Smoker
Alcohol: None
Drug: None
Family History
Family History: Not pertinent
Allergies / Home Medications
Allergies reflects when Allergies were last updated in [facility].
Home Medications with original date entered in [facility]
Allergy/Medication List:
Allergies
Allergy/AdvReac Type Severity Reaction Status Date / Time
No Known Allergies Allergy Verified 05/03/24 05:25
Home Medications
levothyroxine 100 mcg tablet 100 mcg PO DAILY Thyroid 09/03/18
atorvastatin 40 mg tablet 40 mg PO DAILY High cholesterol 03/09/22
coenzyme Q10 100 mg capsule (Co Q-10) 100 mg PO DAILY Supplement 03/09/22
empagliflozin 10 mg tablet (Jardiance) 25 mg PO DAILY Diabetes 03/09/22
glimepiride 2 mg tablet 2 mg PO DAILY Diabetes 03/09/22
isosorbide mononitrate 30 mg tablet,extended release 24 hr 30 mg PO DAILY Heart disease/condition 03/09/22
omega-3 acid ethyl esters 1 gram capsule 1 g PO DAILY Supplement 03/09/22
potassium chloride 10 mEq tablet,extended release(part/cryst) 10 meq PO BID Electrolyte Repletion 03/09/22
sacubitril 49 mg-valsartan 51 mg tablet (Entresto) 1 tab PO Q12H Heart Failure 03/09/22
torsemide 20 mg tablet 20 mg PO DAILY Fluid retention/Swelling 03/09/22
aspirin 81 mg tablet,delayed release 81 mg PO QPM 11/29/23
empagliflozin 10 mg tablet 10 mg PO DAILY 11/29/23
acetaminophen 325 mg tablet 650 mg (2 x 325 mg) PO Q4HPRN PRN mild pain #0 tabs 12/01/23
amiodarone 200 mg tablet 400 mg (2 x 200 mg) PO BID #120 tabs 12/01/23
carvedilol 12.5 mg tablet 12.5 mg PO BID 05/03/24
Review of Systems
-
A 12 point ROS was completed and negative except as noted: Yes
Physical Exam
Vital Signs
Vital Signs
Temp Pulse Resp BP Pulse Ox
98.1 F 50 16 112/75 96
05/03/24 12:32 05/03/24 12:32 05/03/24 12:32 05/03/24 10:59 05/03/24 12:32
Physical Exam
General: Well Developed
Laboratory Results
-
05/03/24 05:55
05/03/24 05:55
Laboratory Results
APTT 30.4 Sec (23.4-35.0) 05/03/24 05:55
Total Bilirubin 1.8 mg/dl (0.2-1.3) H 05/03/24 05:55
AST 60 U/L (17-59) H 05/03/24 05:55
ALT 68 U/L (0-50) H 05/03/24 05:55
Alkaline Phosphatase 122 U/L (38-126) 05/03/24 05:55
Troponin I 0.029 ng/ml 05/03/24 05:55
Impression/Plan
-
NAD
Scleral Anicteric
MMM
No JVD, previous trach scar
CTABL
RRR, S1/S2
Morbidly obese soft, NT, ND, BS+
Warm, Dry
AAOx3
Calm
VT
S/p cardioversion under sedation in the ED
Cardiology discussed with EP was reviewed with DCCV, IV amnio reload and adding mexiletine
Potentially may need ablation
HFrEF, EF 10 to 15%, NYHA class IV, he is obese therefore hard to tell about his fluid status. However did not notice lower extremity edema JVD the nor crackles on exam
Cardiology continue GDMT IV diuresis with Lasix 40 mg twice daily
Eventually will need follow-up at a transplant center
CAD
Continue aspirin statin and beta-marley
Hypothyroidism
Continue levothyroxine
CKD 3A
Avoid nephrotoxins monitor urinary output avoid hypotension
Metabolic acidosis
Could be related to renal function however at baseline.
Diabetes
Hold glimepiride while inpatient
*Sliding scale
Carb controlled diet
On SGLT2 inhibitor
--- NOTE | 2024-05-03 15:23 | PTCARENOTE ---
Amiodarone drip reduced to 0.5 mg/min as per MAR, infusing well through right hand without any s/s of redness or swelling.
[2024-05-03 16:57] LABS: Glucose - Point of Care 178 mg/dl (70-99)
[2024-05-03] MEDS: NOVOLOG FLEXPEN-LOW RESISTANCE 1 UNITS SC (17:43)
[2024-05-03] MEDS: ASPIR LOW (ENTERIC COATED) 81 MG PO (17:44)
[2024-05-03] MEDS: COREG 6.25 MG PO (19:31)
[2024-05-03] MEDS: HEPARIN 5000 UNITS SC (19:32)
--- NOTE | 2024-05-03 21:15 | PTCARENOTE ---
Rec'd at change of shift. Pt AAO*3, VSS, and AV paced on TELE monitor. Pt denies any pain or discomfort. Amio infusing at 0.5 mcg/min per order through the R hand IV. Pt updated on plan of care and denies any questions or concerns. Pt resting
with call melendez in reach and plan of care ongoing. See MAR and flowchart for full pt assessment.
[2024-05-03 21:33] LABS: Glucose - Point of Care 143 mg/dl (70-99)
[2024-05-03] MEDS: ENTRESTO 49 MG/51 MG 1 TAB PO (23:12)
[2024-05-04] VITALS (10 sets, daily range): BP systolic 102–122; BP diastolic 66–85; PULSE 50–55; BMI 37.0
[2024-05-04 03:01] LABS: Hematocrit 49.8 % (39.0-52.0); Hemoglobin 16.2 g/dL (13.0-18.0); Mean Corp Hgb Conc. 32.5 g/dL (33.0-37.0); Mean Corpuscular Hgb 24.4 pg (27.0-31.0); Mean Corpuscular Volume 74.9 fL (80.0-94.0); Mean Platelet Volume 9.4 fL (7.4-10.4); Platelet Count 149 10^3/uL (130-400); Red Blood Cell Count 6.65 10^6/uL (4.70-6.10); Red Cell Dist. Width 19.7 % (11.5-14.5); White Blood Cell Count 8.2 10^3/uL (4.8-10.8)
[2024-05-04 03:13] LABS: Blood Urea Nitrogen 37 mg/dl (9-20); Calcium 8.6 mg/dl (8.4-10.2); Carbon Dioxide 24 mmol/L (22-30); Chloride 102 mmol/L (98-107); Estimated Creatinine Clearance 59 ml/min; Glucose 143 mg/dl (70-99); Potassium 3.8 mmol/L (3.5-5.1); Sodium 139 mmol/L (135-145); eGFR 51.99
[2024-05-04] MEDS: SYNTHROID 100 MCG PO (06:05)
--- NOTE | 2024-05-04 06:26 | PTCARENOTE ---
Amio gtt discontinued after pt complained of pain at site. R hand site appears to be intact without appearance of infiltration or phlebitis. R hand iv site removed. See for flowchart for details. Plan of care ongoing.
[2024-05-04 07:46] LABS: Glucose - Point of Care 138 mg/dl (70-99)
[2024-05-04] MEDS: NOVOLOG FLEXPEN-LOW RESISTANCE SC ×3 (08:17→16:41)
[2024-05-04] MEDS: IMDUR (EXTENDED RELEASE) 30 MG PO (08:17)
[2024-05-04] MEDS: HEPARIN 5000 UNITS SC ×2 (08:18→19:38)
[2024-05-04] MEDS: COREG 6.25 MG PO ×2 (08:18→19:37)
[2024-05-04] MEDS: FARXIGA 10 MG PO (08:18)
[2024-05-04] MEDS: LIPITOR 40 MG PO (08:18)
[2024-05-04] MEDS: LASIX 40 MG IV ×2 (08:19→15:39)
[2024-05-04] MEDS: MEXITIL 150 MG PO ×3 (08:21→23:17)
--- NOTE | 2024-05-04 09:20 | PTCARENOTE ---
Assumed care of pt from night RN. Pt received asleep on CPAP. VSS, CM shows A/V pacing 50's, POX 95% on RA. Pt offers no c/o pain or discomfort, encouraged to walk in hallway.
--- NOTE | 2024-05-04 09:27 | W.PN.CD ---
Today's Communication / Plan
-
Continue IV diuresis.
Transition IV amiodarone to p.o. 400 mg a day. Continue mexiletine.
EP consult tomorrow to discuss possibility of VT ablation.
Impression / Plan
-
63-year-old patient with a past medical history of heart failure with reduced EF�10 to 15%,Ventricular tachycardia with recent hospitalization in November 2024 with resultant reprogramming of his MACHINE INSTALLER-D device, CAD with totally occluded RCA,
proximal 50% left circumflex, LAD occlusion after the D1 with left to left collaterals after catheterization 11/30/2023, diabetes, CKD, and morbid obesity. Case discussed with Dr. Pradhan this morning as he was called for a STEMI alert. There was
concern that his EKG was consistent with STEMI as patient was complaining of uncomfortableness in his chest and palpitations. Evaluation included a device interrogation showing slow ventricular tachycardia. History more c/w VT than STEMI. Plan was
for admission and evaluation for recurrent VT. He tells me he woke up this morning from rest and had palpitations. He had an uneasiness in his chest but no chest pain. Yesterday he was up and feeling normal walking around [place].
VT:
-Pt with slow VT under detection rate s/p successful DCCV 05/03/23
-D/w EP recommended IV amio re load and adding Mexiletine
-resume Amiodarone 400mg daily
-Formal EP consult planned for Sunday t/c ablation candidacy given recurrent VT in myopathic heart
-MACHINE INSTALLER-D in place ( [employer] )
HFrEF:
- Echo 11/29/23 EF 10-15, global hypokinesis, mildly dilated RV and reduced function, mild MR
-update echo
-BNP 1300, wt is up from last discharge--d/c wt was 102.6 admit at 111.9kg--improving
-Continue IV diuresis- lasix 40mg BID, with intensive monitoring.
-con't GDMT
-consider OP ref to transplant center
CAD:
-con't medical therapy, trop low
-[facility] in 11/2023- Two-vessel coronary artery disease with LAD DENTAL EQUIPMENT MECHANIC and RCA DENTAL EQUIPMENT MECHANIC with L-R collaterals. No culprit occlusion to explain the patient's VT.
Severely elevated LV filling pressure and no aortic stenosis.
CKD3a:
- monitor with diuresis
DM:
-per primary team
-con't current meds
hyperlipidemia:
-chronic statin
Subjective:
still sob with exertion
Physical Exam
Vital Signs/Labs
Vital Signs
Temp Pulse Resp BP Pulse Ox
97.1 F 56 20 118/77 95
05/04/24 07:41 05/04/24 08:00 05/04/24 07:41 05/04/24 07:43 05/04/24 09:07
05/03/24 05/04/24 05/05/24
06:59 06:59 06:59
Actual Weight 111.9 kg 107.2 kg
05/04/24 02:51
05/04/24 02:51
APTT 30.4 Sec (23.4-35.0) 05/03/24 05:55
Magnesium 2.2 mg/dl (1.6-2.3) 05/03/24 05:55
05/03/24
05:55
Emm-A-Htdfrwhtdrj Pept 1360
LAB Results
05/03/24
05:55
Troponin I 0.029
Physical Exam
Constitutional: No acute distress and Other (Quite dyspneic with conversation)
Cardiovascular: Rhythm & rate is regular, Pedal edema is absent and Systolic murmur absent
Respiratory: Respiratory effort normal, Lungs clear to auscul., Wheeze Absent and Crackles Absent
GI: Other (Obese, protuberant abdomen)
Neuro/Psych: AO x 3
Data Reviewed
-
Date of Service: May 04, 2024
Medical Decision Making: Review of Case with other Provider (Discussed with Dr. Jeff, will need IV diuresis, transition IV amiodarone to p.o.)
EKG: Other (Telemetry with BiV pacing no significant arrhythmia)
[2024-05-04] MEDS: PACERONE 400 MG PO (09:51)
[2024-05-04] MEDS: ENTRESTO 49 MG/51 MG 1 TAB PO ×2 (11:10→23:18)
[2024-05-04 12:37] LABS: Glucose - Point of Care 141 mg/dl (70-99)
--- NOTE | 2024-05-04 13:55 | W.PN.HOSP.TC ---
Today's Communication/Plan
-
Assessment / Plan
Assessment / Plan
NAD
Scleral Anicteric
MMM
Bibasilar crackles
RRR, S1/S2
Obese, soft, NT, ND, BS+
Warm, Dry
AAOx3
Calm
VT
S/p cardioversion under sedation in the ED
Cardiology discussed with EP was reviewed with DCCV, completed Amio load, now on po amio and mexiletine
Potentially may need ablation, EP eval pending
HFrEF, EF 10 to 15%, NYHA class IV, he is obese therefore hard to tell about his fluid status. However did not notice lower extremity edema JVD the nor crackles on exam
Cardiology continue GDMT IV diuresis with Lasix 40 mg twice daily
Eventually will need follow-up at a transplant center
CAD
Continue aspirin statin and beta-marley
Hypothyroidism
Continue levothyroxine
CKD 3A
Avoid nephrotoxins monitor urinary output avoid hypotension
Metabolic acidosis
Could be related to renal function however at baseline.
Diabetes
Hold glimepiride while inpatient
*Sliding scale
Carb controlled diet
On SGLT2 inhibitor
Ryne continue cpap
Anticipated Discharge: 24 - 48 hours
Subjective/Interval History
-
Date of Service: May 04, 2024
seen and examined. no new complaints. no acute overnight events
Objective Data
-
Labs:
Laboratory Results
05/04/24
02:51
WBC 8.2
Hgb 16.2
Hct 49.8
Plt Count 149
Sodium 139
Potassium 3.8
Chloride 102
Carbon Dioxide 24
BUN 37 H
Creatinine 1.5 H
Glucose 143 H
Calcium 8.6
Vital Signs:
Vital Signs
Temp Pulse Resp BP Pulse Ox
97 F 50 20 102/67 98
05/04/24 12:12 05/04/24 12:11 05/04/24 12:12 05/04/24 12:11 05/04/24 12:12
I&O
05/03/24 05/04/24 05/05/24
06:59 06:59 06:59
Intake Total 955 / 955
Output Total 550 / 550
Balance 405 / 405
[2024-05-04 16:42] LABS: Glucose - Point of Care 131 mg/dl (70-99)
[2024-05-04] MEDS: ASPIR LOW (ENTERIC COATED) 81 MG PO (18:01)
[2024-05-04 21:28] LABS: Glucose - Point of Care 134 mg/dl (70-99)
--- NOTE | 2024-05-04 23:40 | PTCARENOTE ---
Rec'd pt at change of shift. Pt A-V paced on TELE monitor, VSS, and AAO*3. Pt denies any pain or discomfort. Pt updated on plan of care and verbalizes understanding. Pt agreed to NPO status for possible VT ablation in AM. Plan of care ongoing
and pt resting with call melendez in reach. See MAR and flowchart for full pt assessment and care.
[2024-05-05] VITALS (10 sets, daily range): BP systolic 110–134; BP diastolic 72–87; PULSE 66; BMI 36.5
[2024-05-05] MEDS: SYNTHROID 100 MCG PO (05:59)
[2024-05-05 06:25] LABS: Hematocrit 51.6 % (39.0-52.0); Hemoglobin 17.1 g/dL (13.0-18.0); Mean Corp Hgb Conc. 33.1 g/dL (33.0-37.0); Mean Corpuscular Hgb 24.7 pg (27.0-31.0); Mean Corpuscular Volume 74.5 fL (80.0-94.0); Platelet Count 164 10^3/uL (130-400); Red Blood Cell Count 6.93 10^6/uL (4.70-6.10); Red Cell Dist. Width 19.6 % (11.5-14.5); White Blood Cell Count 7.3 10^3/uL (4.8-10.8)
[2024-05-05 07:04] LABS: Blood Urea Nitrogen 36 mg/dl (9-20); Calcium 8.7 mg/dl (8.4-10.2); Carbon Dioxide 21 mmol/L (22-30); Chloride 106 mmol/L (98-107); Estimated Creatinine Clearance 58 ml/min; Glucose 142 mg/dl (70-99); Potassium 4.9 mmol/L (3.5-5.1); Sodium 138 mmol/L (135-145); eGFR 51.99
--- NOTE | 2024-05-05 07:19 | W.PN.HOSP.TC ---
Today's Communication/Plan
-
follow up further cardiology/EP recs
Assessment / Plan
Assessment / Plan
Mr. Allan Guerra is a 63 yo man with hx HFrEF 10-15%, CAD, hypothyroidism, CKD III, VT (s/p hospitalization 12/11 with reprogramming WARBLE SAW OPERATOR-D device), morbid obesity presents to the ER with pounding sensation in chest found to be in slow VT with
HR's 90-120's. He is s/p synchronized cardioversion in the ER and started on IV amiodarone gtt.
VT
S/p cardioversion under sedation in the ED
s/p IV Amiodarone load
-continue amiodarone 400mg PO QD
-new start Mexiletine 150mg PO Q8
-EP Eval pending
HFrEF, EF 10 to 15%, NYHA class IV
-he is on Torsemide 20mg PO QD at home
Cardiology continue GDMT: COUNTRY MANAGER Coreg, Imdur, Entresto
IV diuresis with Lasix 40 mg twice daily
Eventually will need follow-up at a transplant center
CAD
Continue aspirin statin and beta-marley
Hypothyroidism
Continue levothyroxine
CKD 3A
Avoid nephrotoxins monitor urinary output avoid hypotension
Metabolic acidosis
Could be related to renal function however at baseline.
Diabetes
Hold glimepiride while inpatient
*Sliding scale
Carb controlled diet
On SGLT2 inhibitor
Ryne continue cpap
DVT PPx hep subQ
Anticipated Discharge: > 48 hours
Subjective/Interval History
-
Date of Service: May 05, 2024
feeling okay
urinating a lot, breathing feels better this morning
no chest pain
Objective Data
-
Labs:
Laboratory Results
05/05/24
06:09
WBC 7.3
Hgb 17.1
Hct 51.6
Plt Count 164
Sodium 138
Potassium 4.9 D
Chloride 106
Carbon Dioxide 21 L
BUN 36 H
Creatinine 1.5 H
Glucose 142 H
Calcium 8.7
Vital Signs:
Vital Signs
Temp Pulse Resp BP Pulse Ox
98 F 50 20 122/75 95
05/05/24 04:06 05/05/24 04:06 05/05/24 04:06 05/05/24 04:06 05/05/24 04:06
I&O
05/04/24 05/05/24 05/06/24
06:59 06:59 06:59
Intake Total 955 / 955 480 / 480
Output Total 550 / 550
Balance 405 / 405 480 / 480
Review of Systems
-
History Source: Patient
All other systems: Reviewed and negative
Physical Exam
-
General: No Apparent Distress
HEENT: Atraumatic and PERRLA
Respiratory: Negative Wheezes
Cardiac: Regular Rhythm and S1/S2
GI: Soft and Nontender
Musculoskeletal: No Edema
Skin: Warm and Dry; Negative Rash
Neuro: AO x 3
Psych: Calm
Data Reviewed
-
Diagnostic Radiology: Report Reviewed by me
Labs: Labs Reviewed by me
[2024-05-05 07:43] LABS: Glucose - Point of Care 141 mg/dl (70-99)
[2024-05-05] MEDS: NOVOLOG FLEXPEN-LOW RESISTANCE SC ×3 (09:00→17:10)
[2024-05-05] MEDS: IMDUR (EXTENDED RELEASE) 30 MG PO (09:27)
[2024-05-05] MEDS: LIPITOR 40 MG PO (09:27)
[2024-05-05] MEDS: COREG 6.25 MG PO ×2 (09:27→20:25)
[2024-05-05] MEDS: PACERONE 400 MG PO (09:27)
[2024-05-05] MEDS: FARXIGA 10 MG PO (09:27)
[2024-05-05] MEDS: LASIX 40 MG IV ×2 (09:28→15:55)
[2024-05-05] MEDS: HEPARIN 5000 UNITS SC ×2 (09:30→20:26)
[2024-05-05] MEDS: MEXITIL 150 MG PO ×3 (09:31→23:52)
--- NOTE | 2024-05-05 10:18 | CM ---
Reviewed chart. Met with Mr. Guerra to review discharge plans. He states prior to admission he resides with his sister in an second floor apartment with sixteen steps to enter. He states prior to admission he was independent with ambulation and
adls. He states he has a CPAP Machine at home and no other DME in the home. He states he has a prescription plan. Medical work-up in progress. The discharge plan is to return home with his sister when medically stable.
[2024-05-05 10:20] LABS: ALT (SGPT) 61 U/L (0-50); AST (SGOT) 37 U/L (17-59); Alkaline Phosphatase 110 U/L (38-126); Magnesium 2.6 mg/dl (1.6-2.3); Total Bilirubin 2.5 mg/dl (0.2-1.3)
[2024-05-05] MEDS: ENTRESTO 49 MG/51 MG 1 TAB PO ×2 (11:13→23:51)
[2024-05-05 12:21] LABS: Direct Bilirubin 0.3 mg/dl (0.0-0.4)
--- NOTE | 2024-05-05 12:58 | W.PN.CD ---
Today's Communication / Plan
-
-Continue Amiodarone and Mexiletine.
- Reprogram the BiV ICD.
Impression / Plan
-
63-year-old patient with a past medical history of heart failure with reduced EF�10 to 15%,Ventricular tachycardia with recent hospitalization in November 2024 with resultant reprogramming of his LOCAL SALES MANAGER-D device, CAD with totally occluded RCA,
proximal 50% left circumflex, LAD occlusion after the D1 with left to left collaterals after catheterization 11/30/2023, diabetes, CKD, and morbid obesity. Case discussed with Dr. Pradhan this morning as he was called for a STEMI alert. There was
concern that his EKG was consistent with STEMI as patient was complaining of uncomfortableness in his chest and palpitations. Evaluation included a device interrogation showing slow ventricular tachycardia. History more c/w VT than STEMI. Plan was
for admission and evaluation for recurrent VT. He tells me he woke up this morning from rest and had palpitations. He had an uneasiness in his chest but no chest pain. Yesterday he was up and feeling normal walking around [place].
VT:
-Pt with slow VT under detection rate s/p successful DCCV 05/03/23
-s/p IV amio re load and adding Mexiletine
-resume Amiodarone 400mg daily
-with recurrent slow VT, needs VT ablation
-refer to [facility] for possible transplant.
-LOCAL SALES MANAGER-D in place ( [employer] )
-The LV lead was malfunctioning but reprogrammed. Now BiV Paced
- Plan for continued Amiodarone and Mexiletine.
- Reprogram the BiV ICD for higher rate to suppress the VT.
- Outpatient consult to discuss VT ablation.
HFrEF:
- Echo 11/29/23 EF 10-15%, global hypokinesis, mildly dilated RV and reduced function, mild MR
-update echo
-BNP 1300, wt is up from last discharge--d/c wt was 102.6 admit at 111.9kg--improving
-Continue IV diuresis- lasix 40mg BID, with intensive monitoring.
-con't GDMT
-consider OP ref to transplant center
CAD:
-con't medical therapy, trop low
-[facility] in 11/2023- Two-vessel coronary artery disease with LAD FILLING AND STAPLING MACHINE OPERATOR and RCA FILLING AND STAPLING MACHINE OPERATOR with L-R collaterals. No culprit occlusion to explain the patient's VT.
Severely elevated LV filling pressure and no aortic stenosis.
CKD3a:
- monitor with diuresis
DM:
-per primary team
-con't current meds
hyperlipidemia:
-chronic statin
Subjective:
still sob with exertion
Physical Exam
Vital Signs/Labs
Vital Signs
Temp Pulse Resp BP Pulse Ox
97.6 F 53 18 121/80 96
05/05/24 11:48 05/05/24 11:13 05/05/24 11:48 05/05/24 11:13 05/05/24 11:48
05/04/24 05/05/24 05/06/24
06:59 06:59 06:59
Actual Weight 107.2 kg 105.6 kg
05/05/24 06:09
05/05/24 06:09
APTT 30.4 Sec (23.4-35.0) 05/03/24 05:55
Magnesium 2.6 mg/dl (1.6-2.3) H 05/05/24 09:13
05/03/24
05:55
Mtg-F-Fjslixreaxe Pept 1360
LAB Results
05/03/24
05:55
Troponin I 0.029
Physical Exam
Constitutional: No acute distress and Comfortable
EENT: Anicteric and Moist mucous membranes
Cardiovascular: Rhythm & rate is regular, Pedal edema is absent, JVD present and Systolic murmur present
Respiratory: Respiratory effort normal, Wheeze Absent and Crackles Absent
GI: Soft and Normal bowel sounds
Neuro/Psych: Alert, Oriented and AO x 3
Other: Cardiac Device Site
Data Reviewed
-
Date of Service: May 05, 2024
Medical Decision Making: Reviewed Test Results, Test Interpretation and Review of Case with other Provider
EKG: Tracing Personally Visualized and interpreted
Echo: Report Reviewed by me
X-Ray/CT/US/MRI/NUC/PET: Image Personally Visualized and interpreted
Labs: Labs Reviewed by me
Old Records: Reviewed
[2024-05-05 13:37] LABS: Glucose - Point of Care 192 mg/dl (70-99)
--- NOTE | 2024-05-05 14:23 | PTCARENOTE ---
Echo completed at bedside.
--- NOTE | 2024-05-05 14:32 | CARDSERVLU ---
Echocardiogram with [facility] completed after protocol screening completed. Allergies verified.
Patent IV site: __left hand__
IV site flushed with 0.9% NaCl pre and post administration.
Diluted bolus method utilized to enhance visualization of ventricular rooney.
Total volume given: __2.5__ mL
Patient tolerated all procedures well without complications.
--- NOTE | 2024-05-05 16:18 | PN.CDI ---
CDI
- -
CDI:
Physician Documentation Request
Admit Date: 05/03/24 08:39
Dear Doctor Yesi,
Please review the following and provide your response in the progress notes.
Clinical Indicators:
Pt admitted with VT cardioversion done in ED
Documented per ED, ' Mild JVD.... Scant rales at bases....'
H&P and progress notes 05/04 & 05/05, 'HFrEF, EF 10 to 15%, NYHA class IV he is on Torsemide 20mg PO QD at home Cardiology continue GDMT: PARTS COUNTERMAN Coreg, Imdur, Entresto IV diuresis with Lasix 40 mg twice daily...'
Please provide further specificity regarding the most likely acuity of CHF you are evaluating, treating or monitoring.
Acute on Chronic Systolic CHF
Acute Systolic CHF
Other ( please specify)
Use of terms such as suspected, likely, concern for, or probable (associated with a specific diagnosis that is being evaluated, monitored, or treated as if it exists) are acceptable and can be coded in the inpatient setting, when documented at the
time of discharge.
Thank you,
Josy Villarreal RN
CDI Specialist
[facility] [employer]
Please use your independent medical judgment in providing your response.
[2024-05-05] MEDS: ASPIR LOW (ENTERIC COATED) 81 MG PO (17:04)
[2024-05-05 17:10] LABS: Glucose - Point of Care 162 mg/dl (70-99)
[2024-05-05 22:35] LABS: Glucose - Point of Care 145 mg/dl (70-99)
[2024-05-06 03:02] VITALS: BP 133/75
[2024-05-06 03:06] VITALS: BMI 36.4
[2024-05-06 03:55] LABS: Carbon Dioxide 27 mmol/L (22-30); Estimated Creatinine Clearance 51 ml/min; Glucose 166 mg/dl (70-99); eGFR 44.74
[2024-05-06 04:05] LABS: Blood Urea Nitrogen 38 mg/dl (9-20); Calcium 9.2 mg/dl (8.4-10.2); Chloride 100 mmol/L (98-107); Potassium 3.8 mmol/L (3.5-5.1); Sodium 139 mmol/L (135-145)
[2024-05-06] MEDS: SYNTHROID 100 MCG PO (06:01)
--- NOTE | 2024-05-06 07:55 | W.PN.HOSP.TC ---
Addendum entered and electronically signed by Suma Key MD 05/06/24 14:00:
Acute on chronic systolic heart failure
-s/p diuresis
Original Note:
Today's Communication/Plan
-
expect DC today after seen by cardiology
Assessment / Plan
Assessment / Plan
Mr. Allan Guerra is a 63 yo man with hx HFrEF 10-15%, CAD, hypothyroidism, CKD III, VT (s/p hospitalization 12/11 with reprogramming CASUAL SHOE INSPECTOR-D device), morbid obesity presents to the ER with pounding sensation in chest found to be in slow VT with
HR's 90-120's. He is s/p synchronized cardioversion in the ER and started on IV amiodarone gtt.
VT
S/p cardioversion under sedation in the ED
s/p IV Amiodarone load
-continue amiodarone 400mg PO QD
-new start Mexiletine 150mg PO Q8
-appreciate EP Eval - Per Dr. Abraham: The LV lead was malfunctioning but reprogrammed. Now BiV Paced, Reprogram the BiV ICD for higher rate to suppress the VT, consult to discuss VT ablation.
HFrEF, EF 10 to 15%, NYHA class IV
-he is on Torsemide 20mg PO QD at home
Cardiology continue GDMT: SEED CLEANER Coreg, Imdur, Entresto
-stop further IV lasix with mild creatinine bump; patietn states breathing back to normal
Eventually will need follow-up at a transplant center
-resume home Torsemide this afternon
CAD
Continue aspirin statin and beta-marley
Hypothyroidism
Continue levothyroxine
CKD 3A
Avoid nephrotoxins monitor urinary output avoid hypotension
Metabolic acidosis
Could be related to renal function however at baseline.
Diabetes
Hold glimepiride while inpatient
*Sliding scale
Carb controlled diet
On SGLT2 inhibitor
Ryne continue cpap
DVT PPx hep subQ
Anticipated Discharge: Today
Subjective/Interval History
-
Date of Service: May 06, 2024
he states his breathing is back to normal
denies chest pain
Objective Data
-
Labs:
Laboratory Results
05/06/24
03:05
Sodium 139
Potassium 3.8
Chloride 100
Carbon Dioxide 27
BUN 38 H
Creatinine 1.7 H
Glucose 166 H
Calcium 9.2
Vital Signs:
Vital Signs
Temp Pulse Resp BP Pulse Ox
98.2 F 66 20 133/75 94
05/06/24 03:00 05/06/24 04:00 05/06/24 03:00 05/06/24 03:02 05/06/24 03:00
I&O
05/05/24 05/06/24 05/07/24
06:59 06:59 06:59
Intake Total 480 / 480 480 / 480
Balance 480 / 480 480 / 480
Review of Systems
-
History Source: Patient
All other systems: Reviewed and negative
Physical Exam
-
General: No Apparent Distress
HEENT: Atraumatic and PERRLA
Respiratory: Negative Wheezes
Cardiac: Regular Rhythm and S1/S2
GI: Soft and Nontender
Musculoskeletal: No Edema
Skin: Warm and Dry; Negative Rash
Neuro: AO x 3
Psych: Calm
Data Reviewed
-
Diagnostic Radiology: Report Reviewed by me
Labs: Labs Reviewed by me
[2024-05-06 08:06] VITALS: BP 111/78
[2024-05-06 08:08] LABS: Glucose - Point of Care 146 mg/dl (70-99)
[2024-05-06] MEDS: NOVOLOG FLEXPEN-LOW RESISTANCE SC ×2 (08:12→12:29)
[2024-05-06] MEDS: PACERONE 400 MG PO (08:38)
[2024-05-06] MEDS: LIPITOR 40 MG PO (08:38)
[2024-05-06] MEDS: FARXIGA 10 MG PO (08:38)
[2024-05-06] MEDS: HEPARIN 5000 UNITS SC (08:38)
[2024-05-06] MEDS: MEXITIL 150 MG PO (08:38)
[2024-05-06] MEDS: KCL 20 MEQ PO (08:40)
[2024-05-06] MEDS: COREG 6.25 MG PO (08:40)
[2024-05-06] MEDS: IMDUR (EXTENDED RELEASE) 30 MG PO (08:42)
--- NOTE | 2024-05-06 09:35 | PTCARENOTE ---
received patient this am sitting in chair, 'patient is tired today', no pain. monitor shows AV paced, VSS. K 3.8, supplemented as ordered.
--- NOTE | 2024-05-06 09:56 | W.PN.CD ---
Today's Communication / Plan
-
- OK to discharge home
- On Amiodarone 400 mg QD and Mexitil 150 mg bid
- Fllow up in office to discuss plan for ablation.
Impression / Plan
-
63-year-old patient with a past medical history of heart failure with reduced EF�10 to 15%,Ventricular tachycardia with recent hospitalization in November 2024 with resultant reprogramming of his AFRICAN STUDIES PROFESSOR-D device, CAD with totally occluded RCA,
proximal 50% left circumflex, LAD occlusion after the D1 with left to left collaterals after catheterization 11/30/2023, diabetes, CKD, and morbid obesity. Case discussed with Dr. Pradhan this morning as he was called for a STEMI alert. There was
concern that his EKG was consistent with STEMI as patient was complaining of uncomfortableness in his chest and palpitations. Evaluation included a device interrogation showing slow ventricular tachycardia. History more c/w VT than STEMI. Plan was
for admission and evaluation for recurrent VT. He tells me he woke up this morning from rest and had palpitations. He had an uneasiness in his chest but no chest pain. Yesterday he was up and feeling normal walking around [facility].
VT:
-Pt with slow VT under detection rate s/p successful DCCV 05/03/23
-s/p IV amio re load and adding Mexiletine
-resume Amiodarone 400mg daily
-with recurrent slow VT, needs VT ablation
-refer to [facility] for possible transplant.
-AFRICAN STUDIES PROFESSOR-D in place ( [place] )
-The LV lead was malfunctioning but reprogrammed. Now BiV Paced
- Plan for continued Amiodarone and Mexiletine.
- Reprogramed the BiV ICD for higher rate t- 65 bpm from 50 bpm on 05/05 (Patient could not tolerate 75 bpm rate and reported nausea)
- Outpatient consult to discuss VT ablation.
HFrEF:
- Echo 11/29/23 EF 10-15%, global hypokinesis, mildly dilated RV and reduced function, mild MR
-update echo
-BNP 1300, wt is up from last discharge--d/c wt was 102.6 admit at 111.9kg--improving
-Continue IV diuresis- lasix 40mg BID, with intensive monitoring.
-con't GDMT
-consider OP ref to transplant center
CAD:
-con't medical therapy, trop low
-[facility] in 11/2023- Two-vessel coronary artery disease with LAD RESEARCH ENGINEER MARINE EQUIPMENT and RCA RESEARCH ENGINEER MARINE EQUIPMENT with L-R collaterals. No culprit occlusion to explain the patient's VT.
Severely elevated LV filling pressure and no aortic stenosis.
CKD3a:
- monitor with diuresis
DM:
-per primary team
-con't current meds
hyperlipidemia:
-chronic statin
Subjective:
still sob with exertion
Physical Exam
Vital Signs/Labs
Vital Signs
Temp Pulse Resp BP Pulse Ox
97.8 F 65 18 111/78 98
05/06/24 08:04 05/06/24 08:40 05/06/24 08:04 05/06/24 08:40 05/06/24 08:04
05/05/24 05/06/24 05/07/24
06:59 06:59 06:59
Actual Weight 105.6 kg 105.4 kg
05/05/24 06:09
05/06/24 03:05
APTT 30.4 Sec (23.4-35.0) 05/03/24 05:55
Magnesium 2.6 mg/dl (1.6-2.3) H 05/05/24 09:13
05/03/24
05:55
Atx-R-Domrmllkrys Pept 1360
Physical Exam
Constitutional: No acute distress and Comfortable
EENT: Anicteric and Moist mucous membranes
Cardiovascular: Rhythm & rate is regular, Pedal edema is absent, JVD present and Systolic murmur present
Respiratory: Respiratory effort normal, Lungs clear to auscul. and Wheeze Absent
GI: Soft, Non tender and Normal bowel sounds
Neuro/Psych: Alert, Oriented and AO x 3
Other: Cardiac Device Site
Data Reviewed
-
Date of Service: May 06, 2024
Medical Decision Making: Reviewed Test Results, Test Interpretation and Review of Case with other Provider
EKG: Tracing Personally Visualized and interpreted
Echo: Report Reviewed by me
Labs: Labs Reviewed by me
Old Records: Reviewed
[2024-05-06] MEDS: ENTRESTO 49 MG/51 MG 1 TAB PO (10:26)
[2024-05-06 11:28] VITALS: BP 115/75
[2024-05-06 12:03] LABS: Glucose - Point of Care 158 mg/dl (70-99)
--- NOTE | 2024-05-06 12:12 | CM ---
Chart reviewed. Patient is independent of ADLS, lives with his sister in a apartment, [address], 0 [address]. Plan is for the patient to return home. CM to follow
--- NOTE | 2024-05-06 14:10 | W.DS.TRANS ---
DC Summary - Developing Machine Tender
-
Discharge Instructions:
Discharge Diagnosis/Procedures Ventricular Tachycardia
Diet Diabetic, Carb Controlled
Activity As tolerated
Driving Restrictions As prior to admission
Bathing Restrictions None
Instructions:
Stand-Alone Forms:
Changes to Home Medications: Yes
Discharge Medications:
DC Medications w/original date entered in [facility]
levothyroxine 100 mcg tablet 100 mcg PO DAILY Thyroid 09/03/18
atorvastatin 40 mg tablet 40 mg PO DAILY High cholesterol 03/09/22
coenzyme Q10 100 mg capsule (Co Q-10) 100 mg PO DAILY Supplement 03/09/22
empagliflozin 10 mg tablet (Jardiance) 25 mg PO DAILY Diabetes 03/09/22
glimepiride 2 mg tablet 2 mg PO DAILY Diabetes 03/09/22
isosorbide mononitrate 30 mg tablet,extended release 24 hr 30 mg PO DAILY Heart disease/condition 03/09/22
omega-3 acid ethyl esters 1 gram capsule 1 g PO DAILY Supplement 03/09/22
potassium chloride 10 mEq tablet,extended release(part/cryst) 10 meq PO BID Electrolyte Repletion 03/09/22
sacubitril 49 mg-valsartan 51 mg tablet (Entresto) 1 tab PO Q12H Heart Failure 03/09/22
torsemide 20 mg tablet 20 mg PO DAILY Fluid retention/Swelling 03/09/22
aspirin 81 mg tablet,delayed release 81 mg PO QPM 11/29/23
empagliflozin 10 mg tablet 10 mg PO DAILY 11/29/23
acetaminophen 325 mg tablet 650 mg (2 x 325 mg) PO Q4HPRN PRN mild pain #0 tabs 12/01/23
carvedilol 12.5 mg tablet 12.5 mg PO BID 05/03/24
amiodarone 200 mg tablet 400 mg (2 x 200 mg) PO DAILY #120 tabs 05/06/24
mexiletine 150 mg capsule 150 mg PO BID #60 caps 05/06/24
Home Medication Changes
Continue Amiodarone 400mg daily
You are newly started on Mexiletine 150mg twice a day
Pending Results: No
[2024-05-06] MEDS: DEMADEX 20 MG PO (14:13)
--- NOTE | 2024-05-06 14:13 | W.DCSUMMARY ---
Discharge Summary
Discharge Data
Date of Admission: 05/03/24
Date of Discharge: 05/06/24
-
Pending Results: No
Hospital Course
Discharging Physician : Dr. Suma Key
Disposition : Home
Principal Discharge diagnosis : Slow ventricular tachycardia
Hospital Course :
Mr. Allan Guerra is a 63 yo man with hx HFrEF 10-15%, CAD, hypothyroidism, CKD III, VT (s/p hospitalization 12/11 with reprogramming CLIENT ONBOARDING ANALYST-D device), presents to the ER with pounding sensation in chest found to be in slow VT with HR's 90-120's.
He is s/p synchronized cardioversion in the ER and was started on IV amiodarone gtt. He was admitted to medicine with Cardiology consulting.
Patient was transitioned back to oral amiodarone and started on Mexiletine. He was evaluted by EP. Per Dr. Abraham, the LV lead was malfunctioning but reprogrammed. He is no BiV paced. BiV ICD reprogrammed for a higher rate. Patient will follow
up as outpatient to discuss VT ablation.
He is also referred to [facility] to discuss transplant.
Patient was treated for acute systolic heart failure and diuresed, resumed on home Torsemide at discharge.
Time spent on discharge was 40 minutes.
Important imaging findings :
Procedure findings :
Discharge Plan
-
Patient Disposition: Home (Routine Discharge)
Discharge Diagnosis/Procedures: Ventricular Tachycardia
Diet: Diabetic, Carb Controlled
Activity: As tolerated
Driving Restrictions: As prior to admission
Bathing Restrictions: None
Specialty Instructions: Weigh Daily- Call MD for wt gain/loss 3 lbs overnight/5 lbs in 1 week
Referrals:
Tyler Abraham MD [Active] - 05/21/24 3:40 pm
UNKNOWN - PT DOES,NOT KNOW [Family Provider] -
Additional Discharge Medication Instructions: Continue Amiodarone 400mg daily
You are newly started on Mexiletine 150mg twice a day
Prescriptions:
New
mexiletine 150 mg Capsule
150 mg PO BID Qty: 60 0RF
Continued
levothyroxine 100 MCG tablet
100 mcg PO DAILY
atorvastatin 40 mg tablet
40 mg PO DAILY
torsemide 20 mg tablet
20 mg PO DAILY
isosorbide mononitrate 30 mg tablet extended release 24 hr
30 mg PO DAILY
glimepiride 2 mg tablet
2 mg PO DAILY
potassium chloride 10 mEq tablet,ER particles/crystals
10 meq PO BID
omega-3 acid ethyl esters 1 gram capsule
1 g PO DAILY
Jardiance 10 mg tablet
25 mg PO DAILY
sacubitril-valsartan [Entresto] 49-51 mg tablet
1 tab PO Q12H
coenzyme Q10 [Co Q-10] 100 mg Capsule
100 mg PO DAILY
aspirin 81 mg Tablet,Delayed Release (Dr/Ec)
81 mg PO QPM
empagliflozin 10 mg Tablet
10 mg PO DAILY
acetaminophen 325 mg Tablet
650 mg PO Q4HPRN PRN (Reason: mild pain) Qty: 0 0RF
carvedilol 12.5 mg Tablet
12.5 mg PO BID
Changed
amiodarone 200 mg Tablet
400 mg PO DAILY Qty: 120 0RF
Rx Instructions:
Amiodarone 400 mg BID for 10 more days then 400 mg daily.
Discharge Orders:
Discharge Patient (As Directed); Ordered 05/06/24
Ordered By: Suma Key
Care Plan Goals
Care Plan Goals:
Problem: Readiness for enhanced knowledge related to diagnosis and treatment plan
Goal: Understand your diagnosis and treatment plan needs, including medications if applicable.
Instructions: Know your diagnosis, underlying causes and treatment plan options, including medications if applicable. Consult with your health care team to learn about your diagnosis and treatment plan, including medications if applicable.
Discharge Date and Time
Print Language: MOLDOVAN
--- NOTE | 2024-05-06 14:58 | PTCARENOTE ---
D/C instructions given to patient and sister, both verbalizes understanding. INT D/C'd, telemetry D/C'd, personal belongings packed and sent home with patient. D/C to home via wc accompanied by staff.
== END 2024-05-06 15:01 | disposition home or self-care (01) | DRG 308 ==
LOC: IVU 08:39
PROVIDERS: Emergency Medicine; ADMITTING PHYSICIAN Hospitalist; ATTENDING PHYSICIAN Student in an Organized Health Care Education/Training Program; EMERGENCY PHYSICIAN Emergency Medicine; OTHER PHYSICIAN Internal Medicine Cardiovascular Disease
PROC: 4B02XTZ Measurement of Cardiac Defibrillator, External Approach (ICD-10-PCS; 2024-05-03)
PROC: 5A2204Z Restoration of Cardiac Rhythm, Single (ICD-10-PCS; 2024-05-03)
PROC: 5A09357 Assistance with Respiratory Ventilation, Less than 24 Consecutive Hours, Continuous Positive Airway Pressure (ICD-10-PCS; 2024-05-03)
DX: T82.110A Breakdown (mechanical) of cardiac electrode, initial encounter (principal); I50.23 Acute on chronic systolic (congestive) heart failure; I47.29 Other ventricular tachycardia; I13.0 Hypertensive heart and chronic kidney disease with heart failure and stage 1 through stage 4 chronic kidney disease, or unspecified chronic kidney disease; E87.20 Acidosis, unspecified; I42.9 Cardiomyopathy, unspecified; I25.10 Atherosclerotic heart disease of native coronary artery without angina pectoris; E03.9 Hypothyroidism, unspecified; E11.22 Type 2 diabetes mellitus with diabetic chronic kidney disease; E78.00 Pure hypercholesterolemia, unspecified; E66.01 Morbid (severe) obesity due to excess calories; N18.31 Chronic kidney disease, stage 3a; G47.33 Obstructive sleep apnea (adult) (pediatric); E78.5 Hyperlipidemia, unspecified; Y83.1 Surgical operation with implant of artificial internal device as the cause of abnormal reaction of the patient, or of later complication, without mention of misadventure at the time of the procedure; Y92.9 Unspecified place or not applicable; Y71.2 Prosthetic and other implants, materials and accessory cardiovascular devices associated with adverse incidents; I25.2 Old myocardial infarction; Z86.79 Personal history of other diseases of the circulatory system; Z95.810 Presence of automatic (implantable) cardiac defibrillator; Z68.36 Body mass index [BMI] 36.0-36.9, adult; Z79.890 Hormone replacement therapy; Z87.891 Personal history of nicotine dependence; Z79.84 Long term (current) use of oral hypoglycemic drugs; Z79.82 Long term (current) use of aspirin
CPT/HCPCS: 71045; 80048; 80053; 82247; 82248; 82962; 83735; 83880; 84075; 84450; 84460; 84484; 85025; 85027; 85730; 92960; 93005; 93288; 93306; 94660; 96365; 96366; 96375; 99152; 99291; Q9950

== ENCOUNTER 2024-05-08 16:40 | Inpatient (IN) | payer OTHER, SELFPAY ==
[2024-05-08] VITALS (32 sets, daily range): BP systolic 79–119; BP diastolic 48–93; PULSE 65; BMI 36.3
--- NOTE | 2024-05-08 07:35 | ED.GENMED ---
History of Present Illness
General
Chief Complaint: Heart Rate Problem
Source: patient
Exam Limitations: none
Time Seen by Provider: 05/08/24 07:23
History of Present Illness
History of Present Illness:
Patient developed nausea and the feeling of his heart pounding fast at about 6 AM. No chest pain or shortness of breath. Recent admission for severe cardiomyopathy/slow V. tach. Symptoms are moderate nature. Patient did drive himself here.
Past History
Past History
ED Past Medical History: Arrthythmia (V. tach), CAD, CHF, HTN, Hypercholesterolemia, NIDDM, [place], Renal failure, Hypothyroidism and Other (Trach)
ED Past Surgical History: Cardiac (Pacemaker)
Social History
Tobacco: Other
Alcohol: Other
Drug: Other
Personal: Other
Employment: Other
Family History
Family History: Unable to obtain
Review of Systems
Review of Systems
All Other Systems: Not applicable
Constitutional: Denies fever
Cardiac: Denies chest pain or syncope
ABD/GI: Denies abdominal pain
Phy Exam
Physical Exam
Physical Exam:
GENERAL: Alert and oriented. Chronically ill. May n no apparent distress
EYE: Orbits normal.
NECK: Supple
CARDIAC: Regular rate and rhythm without any obvious murmurs. Pacemaker upper chest wall
LUNGS: Clear breath sounds,normal
ABDOMEN: Soft, without focal tenderness or distention
NEUROLOGICAL: Alert and oriented , grossly non-focal
SKIN: Warm and dry, no rash or lesion, no discoloration, skin intact.
MUSCULOSKELETAL: Chronic edema with chronic venous changes
PSYCH: Normal and appropriate interaction.
Course
Orders/Labs/Results
Orders:
Orders
05/08/24 07:20
EKG [Electrocardiogram (*1)] Urgent
Reason for Study: Tachycardia
EKG- Treatment ONCE
05/08/24 07:29
Cardiac Monitoring- Treatment ONCE
IV Insert/Care/Rem.- Treatment PRN
Pulse Ox/cont/shift [RESP] Stat
Quantity: 1
05/08/24 07:46
Propofol [Diprivan] 20 ml .ROUTE .STK-MED
05/08/24 07:54
Basic Metabolic Panel Urgent
Complete Blood Count/With Diff Urgent
NT-proBNP Urgent
PTT Urgent
Prothrombin Time Urgent
Troponin I Urgent
05/08/24 Lunch
Cholesterol Lowering
At Your Request: Full Participation
Does patient need a safe tray?: No
Fluid Restriction: 1500 mL/day (50 oz)
Cholesterol Lowering: Sodium, 2 Gram
2200 jeanne/18 CHO Diabetic
05/08/24 12:07
Acetaminophen [Tylenol] 1,000 mg .ROUTE .STK-MED ONE
05/08/24 12:11
Acetaminophen [Tylenol] 1,000 mg PO NOW STA
05/08/24 13:00
Amiodarone [Cordarone] 900 mg DEXTROSE 5% PVC-free BAG [D5W PVC-free BAG] 500 ml IV PER PROTOCOL
05/08/24 14:37
HF DIETARY CONSULT Routine
HF EDUCATOR CONSULT Routine
Comment:
Activity As Directed
Activity Level: As Tolerated
Intake/ Output As Directed
Frequency: Per unit guidelines
Patient Education As Directed
Type: CHF folder
Comment: give on admission. Document in Interdisciplinary Education record
Sleep Apnea Assessment by RN As Directed
Comment:
Physician Instructions:
Vital Signs As Directed
Frequency: Other
Additional Instructions:: Q12 or per unit guidelines if more frequent.
Weight As Directed
Frequency: Daily
Type of Scale: Standing Scale
Comment: Daily morning weight. If unable to stand, use balanced bed scale.
Weight As Directed
Frequency: Once
Type of Scale: Standing Scale
Comment: Upon Admission. If unable to stand, use balanced bed scale.
Pulse Ox/cont/shift [RESP] Routine
Quantity: 1
Special Instructions: Daily pulse oximetry at rest. If greater than 92% at rest also obtain pulse oximetry
while ambulating as tolerated.
DX Deep Vein Thrombosis Video Routine
05/08/24 14:39
Acetaminophen [Tylenol] 650 mg PO Q4HPRN PRN
05/08/24 14:40
Admit Patient As Directed
Co-Sign Provider:
Level of Care: Inpatient admission
Assign to:: IVU
Physician / Group: cbc
Diagnosis: VT
Reason for Hospitalization: VT, Cardiomyopathy
Expected length of stay greater than two midnights?: Yes
ELOS- Estimated Length of Stay in days: 2
I certify the patient meets the requirements for IP care: Yes
Dextrose 50%-Water [Dextrose 50% Syringe] 12.5 grams IV [id number] PRN
Glucagon [GlucaGen] 1 mg IM PRN PRN
Bedside Glucose Monitoring As Directed
Frequency: AC&HS
Additional Instructions:: Change to q6h if pt on TPN, tube feeding or not eating
PRN Pain Medication Management As Directed
May give lesser potent ordered pain med per pt: Yes
preference::
Protocol:: Medication orders for pain may be administered in a
manner that supports deferring to patient preference
when the pt is:
- Requesting an ordered lesser potent pain medication.
Least to most potent pain medications are defined
as: acetaminophen < NSAID < tramadol < opioids
(morphine, oxycodone, hydromorphone).
- Requesting a lesser dose of the same medication IF
ORDERED.
- Requesting a less intrusive route of administration
if both routes are prescribed by the provider (PO <
IV).
05/08/24 16:00
Heparin 5,000 units SC Q8
05/08/24 16:30
Insulin Aspart Corrective Mod [Novolog Flexpen-Moderate Resistance] See Protocol SC AC
05/08/24 18:00
Aspirin Low Dose EC [Aspir Low (Enteric Coated)] 81 mg PO QPM
05/08/24 20:00
Carvedilol [Coreg] 6.25 mg PO BID
Mexiletine [Mexitil] 150 mg PO BID
Potassium Chloride [KCl] 10 meq PO BID
Sacubitril 49/Valsartan 51 [Entresto 49 mg/51 mg] 1 tab PO Q12H
05/09/24 05:34
Complete Blood Count/No Diff IN AM
Comprehensive Metabolic Panel IN AM
Glycohemoglobin (HgbA1c) IN AM
Magnesium IN AM
05/09/24 06:00
Levothyroxine [Synthroid] 88 mcg PO DAILY @ 0600
05/09/24 08:00
Atorvastatin [Lipitor] 40 mg PO DAILY
Dapagliflozin [Farxiga] 10 mg PO DAILY
Glimepiride [Amaryl] 2 mg PO DAILY
ISOSORBIDE MONOnitrate ER [Imdur (Extended Release)] 30 mg PO DAILY
Torsemide [Demadex] 20 mg PO DAILY
Abnormal Lab Results
05/08/24
07:54
RBC 7.05 H 10^6/uL
(4.70-6.10)
Hct 54.4 H %
(39.0-52.0)
MCV 77.2 L fL
(80.0-94.0)
MCH 24.7 L pg
(27.0-31.0)
MCHC 32.0 L g/dL
(33.0-37.0)
RDW 19.9 H %
(11.5-14.5)
Absolute Monos (auto) 0.9 H 10^3/uL
(0.1-0.6)
Lymphocytes % 16.8 L %
(20.5-51.1)
Monocytes % 11.2 H %
(1.7-9.3)
BUN 42 H mg/dl
(9-20)
Creatinine 1.8 H mg/dL
(0.7-1.3)
Glucose 272 H mg/dl
(70-99)
05/08/24 07:54
05/08/24 07:54
Vital Signs
Initial and Last Documented VS:
Initial Vital Signs
Temp Pulse Resp BP Pulse Ox
97.7 F 97 18 117/81 98
05/08/24 07:18 05/08/24 07:18 05/08/24 07:18 05/08/24 07:18 05/08/24 07:18
Last Documented Vital Signs
Temp Pulse Resp BP Pulse Ox
98.0 F 65 24 115/72 95
05/10/24 07:45 05/10/24 07:46 05/10/24 07:45 05/10/24 07:46 05/10/24 07:50
MDM/Problems Addressed
Differential Diagnosis Includes:
Patient presents in a slow V. tach. Starting with IV access. Pacemaker pads placed. Cardiology involved.
*Pulse Oximetry
Patient hypoxic: no
*EKG
Interpreted by ED Provider?: Yes
Interpretation: abnormal
Comparison EKG: changes noted
Heart Rate: 96
Rate: normal
Rhythm: other (Ventricular tachycardia)
*Machine Plate Stacker Interpretation
Rate: normal
Interpretation: abnormal
Heart Rate: 96
Rhythm: other (V. tach)
*Critical Care Note
Total Time (30-74mins, 75-104mins- exclusive of procedures): Not Applicable (55)
Data Reviewed
Review of Other/Old Records Reveals: Labs, Records, Testing, Progress Notes and Discharge Summary
Update Note
Update Note:
0755... Overdrive pacing by cardiology. V. tach resolved. Status to contact [facility] for possible transfer
0815... Contacted [facility] about transfer. They are asking for cardiac to cardiac discussion. Contacted EP for them to call transfer
ED Attending Note
-
Portions of this chart may have been created with voice recognition software.� Occasional wrong word or��sound alike� substitutions may have occurred due to the inherent limitations of voice recognition software.
Discharge Plan
Departure
Patient Disposition: Acute Care Hospital
Date of Disposition: 05/08/24
Time of Disposition: 12:07
Discharge Problem:
Recurrent V. tach, Severe cardiomyopathy
Hospital Transfer
Other hospital: [facility] / [facility]
I certify that the patient requires transfer: Yes
Discussed case with accepting physician: Angelo
Reason for transfer: higher level of care
Interventions
Interventions:
*Risk Screen - Suicide Last Done: 05/08/24 07:18
*General Assessment Last Done: 05/08/24 07:18
*Neglect/Abuse Screening Last Done: 05/08/24 07:18
ED- Fall Risk Assessment Last Done: 05/08/24 08:30
*ED COVID-19 Vaccine History Last Done: 05/08/24 07:18
ED- Cardiac Assessment Last Done: 05/08/24 08:03
ED- Pulmonary Assessment Last Done: 05/08/24 08:04
Discharge Date and Time
Discharge Date/Time: 05/09/24 18:20
[2024-05-08 08:11] LABS: % Basophils 0.4 % (0-2); % Immature Granulocytes 0.3 % (0-0.5); % Lymphocytes 16.8 % (20.5-51.1); % Monocytes 11.2 % (1.7-9.3); % Neutrophils 70.3 % (42.2-75.2); Absolute Eosinophils 0.1 10^3/uL (0-0.7); Absolute Lymphocytes 1.3 10^3/uL (1.2-3.4); Absolute Monocytes 0.9 10^3/uL (0.1-0.6); Absolute Neutrophils 5.4 10^3/uL (1.4-6.5); Hematocrit 54.4 % (39.0-52.0); Hemoglobin 17.4 g/dL (13.0-18.0); Mean Corpuscular Hgb 24.7 pg (27.0-31.0); Mean Corpuscular Volume 77.2 fL (80.0-94.0); Mean Platelet Volume 10.4 fL (7.4-10.4); Nucleated Red Blood Cells % 0 % (-); Platelet Count 172 10^3/uL (130-400); Red Blood Cell Count 7.05 10^6/uL (4.70-6.10); Red Cell Dist. Width 19.9 % (11.5-14.5); White Blood Cell Count 7.7 10^3/uL (4.8-10.8)
[2024-05-08 08:21] LABS: INR 1.03
[2024-05-08 08:22] LABS: APTT 30.6 Sec (23.4-35.0)
[2024-05-08 08:24] LABS: Blood Urea Nitrogen 42 mg/dl (9-20); Calcium 8.5 mg/dl (8.4-10.2); Carbon Dioxide 25 mmol/L (22-30); Chloride 101 mmol/L (98-107); Glucose 272 mg/dl (70-99); Sodium 138 mmol/L (135-145); eGFR 41.77
[2024-05-08 08:36] LABS: NT-proBNP 1170 pg/ml
[2024-05-08] MEDS: TYLENOL 1000 MG PO (12:12)
[2024-05-08] MEDS: CORDARONE 518 MG IV (13:07)
[2024-05-08] MEDS: HEPARIN 5000 UNITS SC (17:24)
[2024-05-08 17:42] LABS: Glucose - Point of Care 129 mg/dl (70-99)
[2024-05-08] MEDS: NOVOLOG FLEXPEN-MODERATE RESISTANCE SC (17:42)
[2024-05-08] MEDS: ASPIR LOW (ENTERIC COATED) 81 MG PO (18:18)
[2024-05-08] MEDS: COREG 6.25 MG PO (19:43)
[2024-05-08] MEDS: KCL 10 MEQ PO (19:43)
[2024-05-08] MEDS: ENTRESTO 49 MG/51 MG 1 TAB PO (19:54)
[2024-05-08] MEDS: MEXITIL 150 MG PO (19:54)
[2024-05-08 21:13] LABS: Glucose - Point of Care 139 mg/dl (70-99)
[2024-05-09] VITALS (40 sets, daily range): BP systolic 90–124; BP diastolic 54–84; PULSE 68; BMI 36.4
[2024-05-09] MEDS: HEPARIN 5000 UNITS SC ×4 (00:03→23:25)
[2024-05-09] MEDS: SYNTHROID 88 MCG PO (05:46)
[2024-05-09 05:47] LABS: Glucose - Point of Care 124 mg/dl (70-99)
[2024-05-09 05:52] LABS: Hematocrit 50.8 % (39.0-52.0); Hemoglobin 16.6 g/dL (13.0-18.0); Mean Corp Hgb Conc. 32.7 g/dL (33.0-37.0); Mean Corpuscular Hgb 24.8 pg (27.0-31.0); Mean Corpuscular Volume 75.8 fL (80.0-94.0); Mean Platelet Volume 9.6 fL (7.4-10.4); Platelet Count 163 10^3/uL (130-400); Red Cell Dist. Width 19.5 % (11.5-14.5); White Blood Cell Count 7.1 10^3/uL (4.8-10.8)
[2024-05-09 06:04] LABS: ALT (SGPT) 89 U/L (0-50); AST (SGOT) 66 U/L (17-59); Albumin 4.4 g/dl (3.5-5.0); Alkaline Phosphatase 99 U/L (38-126); Blood Urea Nitrogen 38 mg/dl (9-20); Calcium 8.4 mg/dl (8.4-10.2); Carbon Dioxide 24 mmol/L (22-30); Chloride 103 mmol/L (98-107); Estimated Creatinine Clearance 55 ml/min; Glucose 138 mg/dl (70-99); Magnesium 2.6 mg/dl (1.6-2.3); Potassium 4.1 mmol/L (3.5-5.1); Sodium 138 mmol/L (135-145); Total Bilirubin 2.1 mg/dl (0.2-1.3); Total Protein 7.2 g/dl (6.3-8.2); eGFR 48.11
[2024-05-09] MEDS: NOVOLOG FLEXPEN-MODERATE RESISTANCE SC ×4 (06:24→18:04)
[2024-05-09] MEDS: KCL 10 MEQ PO ×2 (07:54→20:20)
[2024-05-09] MEDS: COREG 6.25 MG PO ×2 (07:54→20:20)
[2024-05-09] MEDS: LIPITOR 40 MG PO (07:54)
[2024-05-09] MEDS: ENTRESTO 49 MG/51 MG 1 TAB PO ×2 (07:55→20:20)
[2024-05-09] MEDS: DEMADEX 20 MG PO (07:55)
[2024-05-09] MEDS: MEXITIL 150 MG PO ×2 (07:55→20:20)
[2024-05-09] MEDS: AMARYL 2 MG PO (07:55)
[2024-05-09] MEDS: FARXIGA 10 MG PO (07:55)
[2024-05-09] MEDS: IMDUR (EXTENDED RELEASE) 30 MG PO (07:55)
--- NOTE | 2024-05-09 07:55 | W.PN.CD ---
Today's Communication / Plan
-
Cont amio gtt, cont mexiletine
Pending transfer to [facility]
Impression / Plan
-
63-year-old patient with a past medical history of heart failure with reduced EF�10 to 15%,Ventricular tachycardia with recent hospitalization in November 2024 with resultant reprogramming of his CLEAN ROOM ASSEMBLER-D device, CAD with totally occluded RCA,
proximal 50% left circumflex, LAD occlusion after the D1 with left to left collaterals after catheterization 11/30/2023, diabetes, CKD, and morbid obesity. Case discussed with Dr. Pradhan this morning as he was called for a STEMI alert. There was
concern that his EKG was consistent with STEMI as patient was complaining of uncomfortableness in his chest and palpitations. Evaluation included a device interrogation showing slow ventricular tachycardia. History more c/w VT than STEMI. Plan was
for admission and evaluation for recurrent VT. He tells me he woke up this morning from rest and had palpitations. He had an uneasiness in his chest but no chest pain. Yesterday he was up and feeling normal walking around [employer].
VT:
-Pt with slow VT under detection rate s/p successful DCCV 05/03/23
-Recurrent and incessant VT noted.
-The BiV ICD was interrogated and ATP given to terminate the AIVR to paced rhythm.
-Restart Amiodarone gtt
- Continue Mexiletine
-Homce dose Amiodarone 400mg daily
-with recurrent slow VT, needs VT ablation
-refer to [facility] for possible transplant.
-CLEAN ROOM ASSEMBLER-D in place ( [employer] )
-The LV lead was malfunctioning but reprogrammed. Now BiV Paced
- Plan for continued Amiodarone and Mexiletine.
- Reprogramed the BiV ICD for higher rate to 65 bpm from 50 bpm on 05/05 (Patient could not tolerate 75 bpm rate and reported nausea)
- Transfer to [facility] for Impella assisted epi/endo VT ablation and LVAD/TXP
HFrEF:
-Ischemic cardiomyopathy.
-Echo 11/29/23 EF 10%, global hypokinesis, mildly dilated RV and reduced function, mild MR
-update echo
-BNP 1300
-Continue IV diuresis- lasix 40mg BID, with intensive monitoring.
-con't GDMT
-consider OP ref to transplant center
CAD:
-con't medical therapy, trop low
-LH in 11/2023- Two-vessel coronary artery disease with LAD ROLLER SKATE ASSEMBLER and RCA ROLLER SKATE ASSEMBLER with L-R collaterals. No culprit occlusion to explain the patient's VT.
Severely elevated LV filling pressure and no aortic stenosis.
CKD3a:
- monitor with diuresis
DM:
-per primary team
-con't current meds
hyperlipidemia:
-chronic statin
Subjective:
mild SOB
Physical Exam
Vital Signs/Labs
Vital Signs
Temp Pulse Resp BP Pulse Ox
98.0 F 68 21 106/70 95
05/09/24 03:47 05/09/24 06:30 05/09/24 06:30 05/09/24 06:30 05/09/24 06:30
05/08/24 05/09/24 05/10/24
06:59 06:59 06:59
Actual Weight 232 lb
05/09/24 05:34
05/09/24 05:34
PT 14.0 Sec (11.4-14.6) 05/08/24 07:54
INR 1.03 05/08/24 07:54
APTT 30.6 Sec (23.4-35.0) 05/08/24 07:54
Magnesium 2.6 mg/dl (1.6-2.3) H 05/09/24 05:34
05/08/24
07:54
[id number] Pept 1170
LAB Results
05/08/24
07:54
Troponin I 0.030
Physical Exam
Constitutional: No acute distress and Comfortable
EENT: Anicteric
Cardiovascular: Rhythm & rate is regular
Respiratory: Respiratory effort normal and Lungs clear to auscul.
GI: Soft
Neuro/Psych: AO x 3
Data Reviewed
-
Date of Service: May 09, 2024
EKG: Tracing Personally Visualized and interpreted (paced)
Echo: Tracing Personally Visualized and interpreted and Report Reviewed by me
Labs: Labs Reviewed by me
[2024-05-09 12:00] LABS: Glucose - Point of Care 155 mg/dl (70-99)
--- NOTE | 2024-05-09 16:59 | PN.CDI ---
CDI
- -
CDI:
Physician Documentation Request
Admit Date: 05/08/24 16:40
Dear Doctor Quyen,
Clinical Indicators:
Patient admitted with Ventricular tachycardia.
05/09 PN, 'HFrEF...-BNP 1300-Continue IV diuresis- lasix 40mg BID'
Please provide further specificity regarding the most likely acuity of CHF you are evaluating, treating or monitoring:
Acute HFrEF
Acute on chronic HFrEF
Chronic HFrEF
Other
Use of terms such as suspected, likely, concern for, or probable (associated with a specific diagnosis that is being evaluated, monitored, or treated as if it exists) are acceptable and can be coded in the inpatient setting, when documented at the
time of discharge.
Thank you,
Maggie Mansfield RN BSN
CDI Specialist
available via tiger text
Please use your independent medical judgment in providing your response.
[2024-05-09 18:00] LABS: Glucose - Point of Care 127 mg/dl (70-99)
[2024-05-09] MEDS: ASPIR LOW (ENTERIC COATED) 81 MG PO (18:07)
--- NOTE | 2024-05-09 18:13 | PTCARENOTE ---
Verbal report called to Carolann Wong from IVU, receiving Rn. This Rn will be transporting pt in wheelchair with monitors and Amio infusing. plan of care continues to be followed.
--- NOTE | 2024-05-09 18:44 | PTCARENOTE ---
Attempted to call back [facility] at [phone] to speak to Migel, disability representative, who was unavailable at the time. when initially spoke to Migel at [phone], he reported no be is available yet. Pt made aware.
--- NOTE | 2024-05-09 18:50 | PTCARENOTE ---
Received patient from the ED, assisted to the chair and placed on telemetry. AV paced on the monitor, VSS. Amiodarone infusing through RAC PICC line at 0.5mg/min. Patient familiar with unit after recent hospitalization here. Offers no complaints,
call melendez in reach.
[2024-05-09] MEDS: CORDARONE 518 MG IV (20:39)
--- NOTE | 2024-05-09 22:58 | PTCARENOTE ---
Pt rec'd oob in recliner chair. Didn't like tray of food for dinner so requested just a yogurt. IV Amio gtt infusing at 0.5 mg/hr via BIA dual lumen picc. AV paced on telemetry Currently resting in bed on cpap. Rec'd call from [facility]. update given on
pt. No bed available at this time.
[2024-05-09 23:28] LABS: Glucose - Point of Care 125 mg/dl (70-99)
[2024-05-10 04:59] VITALS: BP 93/76
[2024-05-10 05:03] VITALS: BP 93/76
--- NOTE | 2024-05-10 05:27 | PTCARENOTE ---
At 0500 pt called nursing asking for water. am VS taken and pt given 8 oz glass of ice water. Pt became irate at the size of the cup. 'I've been in the bathroom 6 times to pee I need more water I'm dehydrated'. Pt explained that he is on a fluid
restriction. Pt then told nursing that I could take the little cup with me and he would just drink out of the two sinks in the room. Pt again educated on fluid restriction with low EF and pt did not want to discuss. Pt rolled over in bed away from
nursing.
--- NOTE | 2024-05-10 06:25 | PTCARENOTE ---
Unable to obtain accurate I&O after pt stated she couldn't void in urinal secondary to 'cleanliness with zoroastrian beliefs'
[2024-05-10 06:43] VITALS: BMI 36.4
[2024-05-10 07:43] LABS: Glucose - Point of Care 157 mg/dl (70-99)
[2024-05-10 07:46] VITALS: BP 115/72
[2024-05-10] MEDS: SYNTHROID 88 MCG PO (07:46)
[2024-05-10] MEDS: NOVOLOG FLEXPEN-MODERATE RESISTANCE 1 UNITS SC ×2 (08:51→17:02)
[2024-05-10] MEDS: ENTRESTO 49 MG/51 MG 1 TAB PO (08:52)
[2024-05-10] MEDS: FARXIGA 10 MG PO (08:52)
[2024-05-10] MEDS: IMDUR (EXTENDED RELEASE) 30 MG PO (08:52)
[2024-05-10] MEDS: MEXITIL 150 MG PO (08:53)
[2024-05-10] MEDS: HEPARIN 5000 UNITS SC ×2 (08:53→15:53)
[2024-05-10] MEDS: KCL 10 MEQ PO (08:53)
[2024-05-10] MEDS: COREG 6.25 MG PO (08:53)
[2024-05-10] MEDS: LIPITOR 40 MG PO (08:54)
[2024-05-10] MEDS: DEMADEX 20 MG PO (08:54)
[2024-05-10] MEDS: AMARYL 2 MG PO (08:54)
--- NOTE | 2024-05-10 10:25 | W.PN.CD ---
Addendum entered and electronically signed by Fernando Napier MD 05/10/24 14:39:
Patient has been accepted to [facility] and will be discharged today
Original Note:
Today's Communication / Plan
-
Cont amio gtt
Awaiting [facility] transfer
Impression / Plan
-
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
proximal 50% left circumflex, LAD occlusion after the D1 with left to left collaterals after catheterization 11/30/2023, diabetes, CKD, and morbid obesity. Case discussed with Dr. Pradhan this morning as he was called for a STEMI alert. There was
concern that his EKG was consistent with STEMI as patient was complaining of uncomfortableness in his chest and palpitations. Evaluation included a device interrogation showing slow ventricular tachycardia. History more c/w VT than STEMI. Plan was
for admission and evaluation for recurrent VT. He tells me he woke up this morning from rest and had palpitations. He had an uneasiness in his chest but no chest pain. Yesterday he was up and feeling normal walking around [facility].
VT:likely VT STORM
-Pt with slow VT under detection rate s/p successful DCCV 05/03/23
-Recurrent and incessant VT noted.
-The BiV ICD was interrogated and ATP given to terminate the AIVR to paced rhythm.
-Restart Amiodarone gtt
- Continue Mexiletine
-Home dose Amiodarone 400mg daily
-with recurrent slow VT, needs VT ablation
-refer to [facility] for possible transplant.
-TRAVEL REG[employer] NURSE PACU-D in place ( [employer] )
-The LV lead was malfunctioning but reprogrammed. Now BiV Paced
- Plan for continued Amiodarone and Mexiletine.
- Reprogramed the BiV ICD for higher rate to 65 bpm from 50 bpm on 2/17 (Patient could not tolerate 75 bpm rate and reported nausea)
- Transfer to [facility] for Impella assisted epi/endo VT ablation and LVAD/TXP
HFrEF: chronic EF ~ 10%
-Ischemic cardiomyopathy.
-Echo 11/29/23 EF 10%, global hypokinesis, mildly dilated RV and reduced function, mild MR
-update echo
-BNP 1300
-Continue IV diuresis- lasix 40mg BID, with intensive monitoring.
-con't GDMT
CAD:
-con't medical therapy, trop low
-LHC in 11/2023- Two-vessel coronary artery disease with LAD WOODWORKER and RCA WOODWORKER with L-R collaterals. No culprit occlusion to explain the patient's VT.
Severely elevated LV filling pressure and no aortic stenosis.
CKD3a:
- monitor with diuresis
DM:
-per primary team
-con't current meds
hyperlipidemia:
-chronic statin
Subjective:
Feeling OK
Echo: CONCLUSIONS
Severely dilated LV with severely reduced systolic function.
LVEF is approximately 10% by visual estimation. Severe global diffuse
hypokinesis.
Normal right ventricular size and function.
Mild mitral regurgitation.
Right heart pressures could not be determined.
Compared to prior from November 29, 2023, no significant change.
Physical Exam
Vital Signs/Labs
Vital Signs
Temp Pulse Resp BP Pulse Ox
98.0 F 65 24 115/72 95
05/10/24 07:45 05/10/24 08:53 05/10/24 07:45 05/10/24 08:53 05/10/24 07:50
05/09/24 05/10/24 05/11/24
06:59 06:59 06:59
Actual Weight 232 lb 232 lb 2.348 oz
05/09/24 05:34
05/09/24 05:34
PT 14.0 Sec (11.4-14.6) 05/08/24 07:54
INR 1.03 05/08/24 07:54
APTT 30.6 Sec (23.4-35.0) 05/08/24 07:54
Magnesium 2.6 mg/dl (1.6-2.3) H 05/09/24 05:34
05/08/24
07:54
Tti-P-Nzyiuvngptv Pept 1170
LAB Results
05/08/24
07:54
Troponin I 0.030
Physical Exam
Constitutional: No acute distress and Comfortable
EENT: Anicteric
Cardiovascular: Rhythm & rate is regular
Respiratory: Respiratory effort normal and Lungs clear to auscul.
GI: Soft
Neuro/Psych: AO x 3
Data Reviewed
-
Date of Service: May 10, 2024
EKG: Tracing Personally Visualized and interpreted (paced)
Echo: Tracing Personally Visualized and interpreted
Labs: Labs Reviewed by me
[2024-05-10 12:22] VITALS: BP 94/70
[2024-05-10 12:27] LABS: Glucose - Point of Care 120 mg/dl (70-99)
[2024-05-10] MEDS: NOVOLOG FLEXPEN-MODERATE RESISTANCE SC (12:40)
[2024-05-10 15:28] VITALS: BP 97/74
[2024-05-10] MEDS: ASPIR LOW (ENTERIC COATED) 81 MG PO (15:53)
[2024-05-10 17:01] LABS: Glucose - Point of Care 171 mg/dl (70-99)
--- NOTE | 2024-05-10 17:20 | PTCARENOTE ---
Pt denies any discomfort, much happier after fluid restriction was increased to 64 OZ. Pt walking in halls independently at a slow pace without difficulty. Pt voiding in bathroom, unable to use urinal due to restorationism cleanliness issues. Telemetry
shows AV paced rhythm at a rate of 65. Report called to SOFÍA muñiz Lefors at 14:40 at [phone]. 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 Pt states understanding of need for higher level of care.
== END 2024-05-10 19:30 | disposition short-term general hospital (02) | DRG 309 ==
LOC: IVU 16:40
PROVIDERS: Internal Medicine Cardiovascular Disease; Nurse Practitioner Adult Health; Radiology Diagnostic Radiology; ADMITTING PHYSICIAN Internal Medicine Cardiovascular Disease; EMERGENCY PHYSICIAN Emergency Medicine; FAMILY PHYSICIAN Internal Medicine
PROC: 02HV33Z Insertion of Infusion Device into Superior Vena Cava, Percutaneous Approach (ICD-10-PCS; 2024-05-09)
PROC: 4B02XTZ Measurement of Cardiac Defibrillator, External Approach (ICD-10-PCS; 2024-05-09)
DX: I47.29 Other ventricular tachycardia (principal); I13.0 Hypertensive heart and chronic kidney disease with heart failure and stage 1 through stage 4 chronic kidney disease, or unspecified chronic kidney disease; I50.22 Chronic systolic (congestive) heart failure; E03.9 Hypothyroidism, unspecified; E78.00 Pure hypercholesterolemia, unspecified; I25.5 Ischemic cardiomyopathy; I25.10 Atherosclerotic heart disease of native coronary artery without angina pectoris; E78.5 Hyperlipidemia, unspecified; E11.22 Type 2 diabetes mellitus with diabetic chronic kidney disease; N18.31 Chronic kidney disease, stage 3a; I25.2 Old myocardial infarction; Z79.84 Long term (current) use of oral hypoglycemic drugs; Z79.890 Hormone replacement therapy; Z95.810 Presence of automatic (implantable) cardiac defibrillator
CPT/HCPCS: 71045; 80048; 80053; 82962; 83036; 83735; 83880; 84484; 85025; 85027; 85610; 85730; 93005; 94660; 96374; 99285